=== PATIENT | male | born 1970 | race Caucasian/White ===

== ENCOUNTER 2017-01-21 18:03 | Emergency (ER) | payer OTHER ==
[~2017-01-21] VITALS: Ht 170.2 cm; Wt 63.5 kg
--- NOTE | ~2017-01-21 | EKG ---
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 : 1970 Requested By: Oralia Smith Order Number: [id number] MD: Chuy Garcia Measurements Intervals [place] Rate: 108 P: 88 [place]: 145 QRS: 75 QRSD: 95 T: 37 QT: 326 QTc: 437 Interpretive Statements Sinus tachycardia ST elev, probable normal early repol pattern Compared to ECG 08/18/2015 04:14:23 ST (T wave) deviation now present Sinus rhythm no longer present Atrial abnormality no longer present T-wave abnormality no longer present Electronically Signed On 01-23-2017 22:12:21 CDT by Chuy Garcia [email or web address] <ELECTRONICALLY SIGNED> By: Chuy Garcia MD 01/23/17 2212 180 180 Chuy Garcia MD /EPI
[~2017-01-21 18:03] MED LIST: ATIVAN1 MG PO; CHLORDIAZEPOXID25 M1 PO; ERYTHROMYCIN E3.5 G1 OPHTHALMIC; LOPRESSOR100 M1 PO; METHADONE HCL40 MG PO; NOHOMEMEDICATIONS; PHENERGAN 25 MG25 M1 PO; PROPRANOLOL 1010 MG PO; VICODIN 5-5001 EACH PO; XANAX 0.5 MG0.5 M1 PO; XANAX 1 MG TABLE1 MG PO
[2017-01-21 18:15] LABS: ABSOLUTE NEUTROPHILS 4.7 thou/uL (1.4-8.2); EOSINOPHILS 0.2 % (0.0-3.0); HEMATOCRIT 42.7 % (42.0-52.0); HEMOGLOBIN 14.5 gm/dL (14.0-18.0); LYMPHOCYTES 22.8 % (24.0-44.0); MANUAL DIFF NO; MCH 34.1 pg (26.0-34.0); MCV 100.5 fL (80.0-100.0); MONOCYTES 7.1 % (1.0-8.0); PLATELET COUNT 209 thou/uL (150-400); POLYS 68.9 % (36.0-66.0); RBC 4.25 mil/uL (4.50-6.00); RDW 13.6 % (10.5-14.5); WBC 6.9 thou/uL (4.0-11.0)
[2017-01-21 18:22] LABS: ANION GAP 16 mmol/L (7-16); BUN 21 mg/dL (7-18); CALCIUM 8.8 mg/dL (8.5-10.1); CHLORIDE 95 mmol/L (98-107); CO2 25 mmol/L (21-32); CREATININE 0.8 mg/dL (0.7-1.3); GLUCOSE 75 mg/dL (74-106); SODIUM 136 mmol/L (136-145)
[2017-01-21 18:31] LABS: TROPONIN-I < 0.04 ng/mL (<0.04-0.07)
[2017-01-21] MEDS ORDERED: CHLORDIAZEPOXID10 MG PO (18:58)
[2017-01-21 19:31] VITALS: BP 144/48
== END 2017-01-21 19:42 | disposition home or self-care (01) ==
LOC: ER 18:03
PROVIDERS: Emergency Medicine
DX: F10.239 Alcohol dependence with withdrawal, unspecified (principal); F41.9 Anxiety disorder, unspecified; F17.210 Nicotine dependence, cigarettes, uncomplicated; Z88.5 Allergy status to narcotic agent; Z91.013 Allergy to seafood

== ENCOUNTER 2017-01-23 14:53 | Emergency (ER) | payer OTHER ==
[~2017-01-23] VITALS: Ht 167.6 cm; Wt 61.2 kg
[~2017-01-23 14:53] MED LIST changes: +CHLORDIAZEPOXID10 MG PO
[2017-01-23 15:16] LABS: ABSOLUTE NEUTROPHILS 6.3 thou/uL (1.4-8.2); BASOPHILS 0.4 % (0.0-2.0); EOSINOPHILS 0.8 % (0.0-3.0); HEMATOCRIT 41.9 % (42.0-52.0); HEMOGLOBIN 14.5 gm/dL (14.0-18.0); LYMPHOCYTES 12.7 % (24.0-44.0); MCH 34.6 pg (26.0-34.0); MCHC 34.7 g/dL (28.0-37.0); MCV 99.5 fL (80.0-100.0); MONOCYTES 8.7 % (1.0-8.0); PLATELET COUNT 159 thou/uL (150-400); POLYS 77.4 % (36.0-66.0); RDW 13.2 % (10.5-14.5); WBC 8.1 thou/uL (4.0-11.0)
[2017-01-23 15:19] LABS: MANUAL DIFF NO
[2017-01-23 15:24] LABS: CALCIUM 9.6 mg/dL (8.5-10.1); CREATININE 0.7 mg/dL (0.7-1.3); POTASSIUM 3.1 mmol/L (3.5-5.1)
[2017-01-23 15:30] LABS: ALBUMIN 4.5 g/dL (3.4-5.0); DIRECT BILIRUBIN 0.3 mg/dL (<0.1-0.3); TOTAL BILIRUBIN 1.2 mg/dL (<0.1-1.0); TOTAL PROTEIN 8.1 g/dL (6.4-8.2)
[2017-01-23 18:22] VITALS: BP 132/77
[2017-01-23] MEDS ORDERED: ATIVAN1 MG PO (18:24)
== END 2017-01-23 17:43 | disposition home or self-care (01) ==
LOC: ER 14:53
PROVIDERS: Emergency Medicine
DX: F10.239 Alcohol dependence with withdrawal, unspecified (principal); F41.9 Anxiety disorder, unspecified; F17.210 Nicotine dependence, cigarettes, uncomplicated; Z88.5 Allergy status to narcotic agent; Z91.013 Allergy to seafood

== ENCOUNTER 2017-03-01 19:34 | Inpatient (IN) | payer OTHER ==
[~2017-03-01] VITALS: Ht 170.2 cm; Wt 60.3 kg
--- NOTE | ~2017-03-01 | EKG ---
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: Tamar LUCIANO : 1970 Requested By: Jamaal Aiken Order Number: [id number] MD: Rachid Vázquez Measurements Intervals [place] Rate: 104 P: 92 [place]: 143 QRS: 80 QRSD: 90 T: 48 QT: 327 QTc: 430 Interpretive Statements Sinus tachycardia Otherwise no significant abnormality Compared to ECG 01/21/2017 18:04:33 No significant change was found Electronically Signed On 03-02-2017 8:10:30 CDT by Rachid Vázquez [email or web address] <ELECTRONICALLY SIGNED> By: Rachid Vázquez MD, [facility] 03/02/17809 20 20 Rachid Vázquez MD, [facility] /EPI
[2017-03-01 19:35] VITALS: BP 133/85
[2017-03-01 20:22] LABS: HEMATOCRIT 48.2 % (42.0-52.0); HEMOGLOBIN 16.2 gm/dL (14.0-18.0); MCHC 33.6 g/dL (28.0-37.0); MCV 98.2 fL (80.0-100.0); RBC 4.91 mil/uL (4.50-6.00); RDW 13.6 % (10.5-14.5); WBC 18.3 thou/uL (4.0-11.0)
[2017-03-01 20:29] LABS: CALCIUM 8.4 mg/dL (8.5-10.1)
[2017-03-02] VITALS (22 sets, daily range): BP systolic 106–151; BP diastolic 62–94
[2017-03-02 01:50] LABS: MAGNESIUM 2.1 mg/dL (1.8-2.4); PHOSPHORUS 1.6 mg/dL (2.5-4.9)
[2017-03-02 02:02] LABS: ALBUMIN 3.9 g/dL (3.4-5.0); DIRECT BILIRUBIN 0.1 mg/dL (<0.1-0.3); TOTAL BILIRUBIN 0.8 mg/dL (<0.1-1.0)
[2017-03-02 02:08] LABS: URINE BILIRUBIN NEGATIVE (Negative); URINE BLOOD TRACE (Negative); URINE COLOR YELLOW; URINE GLUCOSE-RANDOM* 1+ (Negative); URINE KETONES 2+ (Negative); URINE NITRITE NEGATIVE (Negative); URINE PROTEIN (DIPSTICK) TRACE (Negative); URINE SPECIFIC GRAVITY 1.025 (1.003-1.035); URINE UROBILINOGEN 0.2 E.U./dl (0.2-1.0)
[2017-03-02 02:15] LABS: FOLIC ACID 29.9 ng/mL (8.6-58.9)
[2017-03-02 02:16] LABS: AMP/METHAMP Negative (Negative); BARBITURATES Negative (Negative); BENZODIAZEPINES POSITIVE (Negative); COCAINE Negative (Negative); METHADONE Negative (Negative); OPIATES Negative (Negative); PCP Negative (Negative); THC Negative (Negative)
[2017-03-02 11:09] LABS: FREE T4 1.25 ng/dL (0.82-1.77)
[2017-03-03] VITALS (17 sets, daily range): BP systolic 96–156; BP diastolic 53–92
[2017-03-03 06:02] LABS: HEMATOCRIT 39.4 % (42.0-52.0); MCH 33.5 pg (26.0-34.0); MCHC 33.7 g/dL (28.0-37.0); MCV 99.4 fL (80.0-100.0); RBC 3.97 mil/uL (4.50-6.00); RDW 13.7 % (10.5-14.5); WBC 7.1 thou/uL (4.0-11.0)
[2017-03-03 06:12] LABS: CALCIUM 8.6 mg/dL (8.5-10.1); CREATININE 0.6 mg/dL (0.7-1.3); POTASSIUM 3.7 mmol/L (3.5-5.1)
[2017-03-03 06:16] LABS: HEMOGLOBIN 13.3 gm/dL (14.0-18.0)
[2017-03-04 00:02] VITALS: BP 125/73
[2017-03-04 01:00] VITALS: BP 139/84
[2017-03-04 02:00] VITALS: BP 126/56
[2017-03-04 04:19] VITALS: BP 120/83
[2017-03-04 15:33] VITALS: BP 163/142
[2017-03-04 19:16] VITALS: BP 148/98
[2017-03-05 05:25] VITALS: BP 136/89
[2017-03-05 07:43] VITALS: BP 117/67
[2017-03-05 11:49] VITALS: BP 140/88
[2017-03-05] MEDS ORDERED: MIRTAZAPINE7.5 MG PO (12:23)
[2017-03-05 12:32] VITALS: BP 107/84
[2017-03-05 13:15] VITALS: BP 107/84
== END 2017-03-05 14:26 | disposition home or self-care (01) | DRG 897 ==
LOC: ER 19:34 → EROBS 21:17 → ICU 03-02 00:34 → 4W 03-04 14:52
PROVIDERS: Emergency Medicine; Nurse Practitioner Acute Care
DX: F10.230 Alcohol dependence with withdrawal, uncomplicated (principal); F41.9 Anxiety disorder, unspecified; F17.210 Nicotine dependence, cigarettes, uncomplicated; D72.829 Elevated white blood cell count, unspecified; F32.9 Major depressive disorder, single episode, unspecified; Z88.5 Allergy status to narcotic agent; Z91.013 Allergy to seafood; Z82.49 Family history of ischemic heart disease and other diseases of the circulatory system; Z80.8 Family history of malignant neoplasm of other organs or systems
CPT/HCPCS: 10045; 10078

== ENCOUNTER 2017-04-07 10:35 | Emergency (ER) | payer OTHER ==
[~2017-04-07] VITALS: Ht 170.2 cm; Wt 65.8 kg
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
[~2017-04-07 10:35] MED LIST changes: +MIRTAZAPINE7.5 MG PO
[2017-04-07 11:13] LABS: ABG SAMPLE TYPE ARTERIAL; BE(vivo) -2.2 mmol/L (-2 to +3); HCO3 22.2 mmol/L (22.0-26.0); LACTATE 3.42 mmol/L (0.5-2.0); O2(CT) 21.8 mL/dL (15.0-23.0); O2Hb 90.6 % (92.0-98.0); PCO2 37.5 mmHg (35.0-45.0); PO2 71.4 mmHg (80.0-100.0); STICK SITE R.BRACHIAL; pH 7.391 (7.360-7.450); sO2 94.3 % (92.0-98.0); tCO2 23.4 mmol/L (24.0-30.0)
[2017-04-07 13:51] LABS: CALCIUM 8.3 mg/dL (8.5-10.1); CREATININE 0.8 mg/dL (0.7-1.3); POTASSIUM 4.1 mmol/L (3.5-5.1)
[2017-04-07 13:56] LABS: ALBUMIN 3.7 g/dL (3.4-5.0); TOTAL BILIRUBIN 0.5 mg/dL (<0.1-1.0); TOTAL PROTEIN 6.3 g/dL (6.4-8.2)
[2017-04-07 14:18] LABS: ABSOLUTE NEUTROPHILS 7.4 thou/uL (1.4-8.2); BASOPHILS 0.7 % (0.0-2.0); EOSINOPHILS 0.6 % (0.0-3.0); HEMATOCRIT 46.6 % (42.0-52.0); HEMOGLOBIN 15.5 gm/dL (14.0-18.0); LYMPHOCYTES 12.6 % (24.0-44.0); MCHC 33.3 g/dL (28.0-37.0); MCV 98.9 fL (80.0-100.0); MONOCYTES 6.2 % (1.0-8.0); PLATELET COUNT 238 thou/uL (150-400); POLYS 79.9 % (36.0-66.0); RBC 4.71 mil/uL (4.50-6.00); RDW 13.7 % (10.5-14.5); WBC 9.2 thou/uL (4.0-11.0)
[2017-04-07 14:19] LABS: MANUAL DIFF NO
[2017-04-08] MEDS ORDERED: XANAX1 MG PO (13:02)
== END 2017-04-07 14:45 | disposition left against medical advice (07) ==
LOC: ER 10:35
PROVIDERS: Nurse Practitioner
DX: F10.10 Alcohol abuse, uncomplicated (principal); E87.2 Acidosis; F41.9 Anxiety disorder, unspecified; Z88.5 Allergy status to narcotic agent; Z91.013 Allergy to seafood

== ENCOUNTER 2017-04-08 09:36 | Inpatient (IN) | payer OTHER ==
[2017-04-08] VITALS (16 sets, daily range): BP systolic 102–130; BP diastolic 57–84
[~2017-04-08] VITALS: Ht 170.2 cm; Wt 59.0 kg
--- NOTE | ~2017-04-08 | EKG ---
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: : 1970 Requested By: Jamaal Aiken Order Number: [id number] MD: Chuy Garcia Measurements Intervals [place] Rate: 65 P: 90 [place]: 160 QRS: 72 QRSD: 112 T: 42 QT: 413 QTc: 430 Interpretive Statements Sinus rhythm Borderline intraventricular conduction delay ST elev, probable normal early repol pattern Compared to ECG 03/01/2017 20:21:34 ST (T wave) deviation now present Sinus tachycardia no longer present Electronically Signed On 04-08-2017 15:31:41 CDT by Chuy Garcia [email or web address] <ELECTRONICALLY SIGNED> By: Chuy Garcia MD 04/08/17 1531 0958 0958 Chuy Garcia MD /EPI
[2017-04-08 10:03] LABS: ABG SAMPLE TYPE ARTERIAL; BE(vivo) -1.4 mmol/L (-2 to +3); HCO3 23.3 mmol/L (22.0-26.0); LACTATE 2.48 mmol/L (0.5-2.0); O2Hb 84.9 % (92.0-98.0); PCO2 39.3 mmHg (35.0-45.0); PO2 64.9 mmHg (80.0-100.0); STICK SITE R.RADIAL; sO2 92.6 % (92.0-98.0); tCO2 24.5 mmol/L (24.0-30.0)
[2017-04-08 11:16] LABS: HEMOGLOBIN 15.9 gm/dL (14.0-18.0); MCH 32.9 pg (26.0-34.0); MCHC 33.2 g/dL (28.0-37.0); MCV 99.1 fL (80.0-100.0); RBC 4.84 mil/uL (4.50-6.00); RDW 13.5 % (10.5-14.5); WBC 7.1 thou/uL (4.0-11.0)
[2017-04-08 11:23] LABS: CALCIUM 8.8 mg/dL (8.5-10.1); CREATININE 0.8 mg/dL (0.7-1.3); MAGNESIUM 2.1 mg/dL (1.8-2.4); POTASSIUM 3.9 mmol/L (3.5-5.1)
[2017-04-08] MEDS ORDERED: XANAX1 MG PO (13:02)
== END 2017-04-08 20:00 | disposition home or self-care (01) | DRG 917 ==
LOC: ER 09:36 → EROBS 10:54 → ICU 14:45
PROVIDERS: Emergency Medicine
DX: T58.91XA Toxic effect of carbon monoxide from unspecified source, accidental (unintentional), initial encounter (principal); J96.01 Acute respiratory failure with hypoxia; S27.399A Other injuries of lung, unspecified, initial encounter; F17.210 Nicotine dependence, cigarettes, uncomplicated; J70.5 Respiratory conditions due to smoke inhalation; F41.9 Anxiety disorder, unspecified; Z88.6 Allergy status to analgesic agent; Z91.013 Allergy to seafood; Z82.49 Family history of ischemic heart disease and other diseases of the circulatory system; Z80.8 Family history of malignant neoplasm of other organs or systems; Z23 Encounter for immunization
CPT/HCPCS: 10078

== ENCOUNTER 2017-04-13 05:33 | Emergency (ER) | payer OTHER ==
[~2017-04-13] VITALS: Ht 170.2 cm; Wt 63.5 kg
--- NOTE | ~2017-04-13 | EKG ---
[address] [place] [address] ELECTROCARDIOGRAM REPORT Name: CHELLY QURESHI Room #: [facility] [id number] Admission: 04/13/17 Attend Phys: Discharge: 04/13/17 Date of : 68 Report #: [id number] THIS REPORT FOR: //name// 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: : 1970 Requested By: Oralia Smith Order Number: [id number] MD: Chuy Garcia Measurements Intervals [place] Rate: 111 P: 90 [place]: 138 QRS: 86 QRSD: 93 T: 33 QT: 321 QTc: 436 Interpretive Statements Sinus tachycardia DELMY, consider biatrial enlargement Compared to ECG 04/08/2017 09:58:39 Sinus rhythm no longer present ST (T wave) deviation no longer present Electronically Signed On 04-13-2017 7:31:50 CDT by Chuy Garcia [email or web address] <ELECTRONICALLY SIGNED> By: Chuy Garcia MD 04/13/17 0731 7 Chuy Garcia MD /MARY KATE
[~2017-04-13 05:33] MED LIST changes: +XANAX1 MG PO
[2017-04-13] MEDS ORDERED: NORCO 5-325 TA1 EACH PO (06:41)
== END 2017-04-13 07:11 | disposition home or self-care (01) ==
LOC: ER 05:33
DX: S39.012A Strain of muscle, fascia and tendon of lower back, initial encounter (principal); F41.9 Anxiety disorder, unspecified; F17.210 Nicotine dependence, cigarettes, uncomplicated; F10.99 Alcohol use, unspecified with unspecified alcohol-induced disorder; Z91.013 Allergy to seafood; Z88.5 Allergy status to narcotic agent; W18.39XA Other fall on same level, initial encounter; Y93.89 Activity, other specified; Y92.89 Other specified places as the place of occurrence of the external cause; Y99.8 Other external cause status

== ENCOUNTER 2017-08-23 13:40 | Emergency (ER) | payer OTHER ==
[~2017-08-23] VITALS: Ht 170.2 cm; Wt 63.5 kg
[~2017-08-23 13:40] MED LIST changes: +NORCO 5-325 TA1 EACH PO
[2017-08-23 14:10] LABS: ABSOLUTE NEUTROPHILS 6.4 thou/uL (1.4-8.2); EOSINOPHILS 2.2 % (0.0-3.0); HEMATOCRIT 44.1 % (42.0-52.0); HEMOGLOBIN 15.1 gm/dL (14.0-18.0); LYMPHOCYTES 25.2 % (24.0-44.0); MCH 33.2 pg (26.0-34.0); MCHC 34.2 g/dL (28.0-37.0); MCV 96.9 fL (80.0-100.0); PLATELET COUNT 309 thou/uL (150-400); POLYS 66.6 % (36.0-66.0); RBC 4.55 mil/uL (4.50-6.00); RDW 13.2 % (10.5-14.5); WBC 9.6 thou/uL (4.0-11.0)
[2017-08-23 14:21] LABS: POTASSIUM 3.8 mmol/L (3.5-5.1)
[2017-08-23 14:26] LABS: TOTAL BILIRUBIN 0.7 mg/dL (<0.1-1.0); TOTAL PROTEIN 7.5 g/dL (6.4-8.2)
[2017-08-23 14:55] VITALS: BP 128/85
[2017-08-23 15:39] LABS: AMP/METHAMP Negative (Negative); BARBITURATES Negative (Negative); BENZODIAZEPINES POSITIVE (Negative); COCAINE Negative (Negative); METHADONE Negative (Negative); OPIATES POSITIVE (Negative); PCP Negative (Negative)
== END 2017-08-23 15:25 | disposition left against medical advice (07) ==
LOC: ER 13:40
PROVIDERS: Nurse Practitioner
DX: R51 Headache (principal); F41.9 Anxiety disorder, unspecified; F17.210 Nicotine dependence, cigarettes, uncomplicated; Z88.5 Allergy status to narcotic agent; Z91.013 Allergy to seafood

== ENCOUNTER 2017-09-16 18:06 | Inpatient (IN) | payer OTHER ==
[~2017-09-16] VITALS: Ht 170.2 cm; Wt 65.8 kg
--- NOTE | ~2017-09-16 | EKG ---
[address] [place] [address] ELECTROCARDIOGRAM REPORT Name: CHELLY QURESHI Room #: [facility] IN M.R.#: [id number] Admission: 09/16/17 Attend Phys: Cornell Zazueta MD Discharge: 09/17/17 Date of : 68 Report #: [id number] THIS REPORT FOR: //name// [facility] ED Test Date: 2017-09-16 Test Time: 18:54:10 Pat Name: CHELLY QURESHI Department: Room: [facility] Gender: M Postpartum Rn: as : 1970 Requested By: Marina Velasquez Order Number: [id number] MD: Rachid Vázquez Measurements Intervals [place] Rate: 90 P: 85 [place]: 157 QRS: 71 QRSD: 91 T: 60 QT: 385 QTc: 471 Interpretive Statements Sinus rhythm Normal tracing Compared to ECG 05/09/2017 15:27:21 ST (T wave) deviation no longer present Electronically Signed On 09-18-2017 12:50:41 CDT by Rachid Vázquez [email or web address] <ELECTRONICALLY SIGNED> By: Rachid Vázquez MD, [facility] 09/18/17 1250 1854 185 Rachid Vázquez MD, [facility] /EPI
[2017-09-16 18:09] VITALS: BP 143/88
[2017-09-16 18:28] LABS: ABSOLUTE NEUTROPHILS 5.7 thou/uL (1.4-8.2); EOSINOPHILS 0.1 % (0.0-3.0); HEMATOCRIT 44.4 % (42.0-52.0); LYMPHOCYTES 11.6 % (24.0-44.0); MCH 33.3 pg (26.0-34.0); MCHC 33.7 g/dL (28.0-37.0); MCV 98.9 fL (80.0-100.0); MONOCYTES 1.6 % (1.0-8.0); PLATELET COUNT 428 thou/uL (150-400); POLYS 85.7 % (36.0-66.0); RBC 4.49 mil/uL (4.50-6.00); RDW 14.5 % (10.5-14.5); WBC 6.6 thou/uL (4.0-11.0)
[2017-09-16 18:36] LABS: CALCIUM 8.7 mg/dL (8.5-10.1); CREATININE 0.8 mg/dL (0.7-1.3); POTASSIUM 3.8 mmol/L (3.5-5.1)
[2017-09-16 18:42] LABS: TOTAL BILIRUBIN 0.6 mg/dL (<0.1-1.0); TOTAL PROTEIN 7.4 g/dL (6.4-8.2)
[2017-09-16 18:43] LABS: URINE BILIRUBIN NEGATIVE (Negative); URINE BLOOD 1+ (Negative); URINE CLARITY CLEAR; URINE COLOR YELLOW; URINE GLUCOSE-RANDOM* NEGATIVE (Negative); URINE KETONES 3+ (Negative); URINE LEUKOCYTES NEGATIVE (Negative); URINE NITRITE NEGATIVE (Negative); URINE PROTEIN (DIPSTICK) TRACE (Negative); URINE SPECIFIC GRAVITY >= 1.030 (1.005-1.035); URINE UROBILINOGEN 0.2 E.U./dl (0.2-1.0)
[2017-09-16 18:50] LABS: URINE REDUCING SUBSTANCE NEGATIVE
[2017-09-16 18:58] LABS: CASTS None Seen /LPF (None Seen); SQUAMOUS None Seen /LPF (0-3); URINE RBC 0-2 Rare /HPF (0-2); URINE WBC 0-5 Rare /HPF (0-5)
[2017-09-16 18:59] LABS: BACTERIA None Seen /HPF (None Seen); CRYSTALS None Seen /LPF (None Seen)
[2017-09-16 19:32] LABS: AMP/METHAMP Negative (Negative); BARBITURATES Negative (Negative); BENZODIAZEPINES Negative (Negative); COCAINE Negative (Negative); METHADONE Negative (Negative); OPIATES POSITIVE (Negative); PCP Negative (Negative)
[2017-09-16 20:10] VITALS: BP 159/82
[2017-09-17 00:46] VITALS: BP 131/74
[2017-09-17 04:15] VITALS: BP 112/82
[2017-09-17 04:28] LABS: CALCIUM 8.1 mg/dL (8.5-10.1); CREATININE 0.7 mg/dL (0.7-1.3); MAGNESIUM 1.7 mg/dL (1.8-2.4); POTASSIUM 3.8 mmol/L (3.5-5.1)
[2017-09-17 07:25] VITALS: BP 160/100
[2017-09-17] MEDS ORDERED: CHLORDIAZEPOXID25 M1 PO (08:31)
[2017-09-17] MEDS ORDERED: VITAMIN B-1100 M2 PO (08:31)
[2017-09-17] MEDS ORDERED: PRENATAL PO (08:32)
[2017-09-17] MEDS ORDERED: NORVASC10 MG PO (08:33)
[2017-09-17 10:55] VITALS: BP 160/100
== END 2017-09-17 12:00 | disposition home or self-care (01) | DRG 897 ==
LOC: ER 18:06 → EROBS 19:30 → 2N 20:18
PROVIDERS: Nurse Practitioner Acute Care; Nurse Practitioner Family
DX: F10.239 Alcohol dependence with withdrawal, unspecified (principal); F41.9 Anxiety disorder, unspecified; I10 Essential (primary) hypertension; R74.0 Nonspecific elevation of levels of transaminase and lactic acid dehydrogenase [LDH]; F17.210 Nicotine dependence, cigarettes, uncomplicated; Z71.6 Tobacco abuse counseling; Z87.828 Personal history of other (healed) physical injury and trauma; Z88.5 Allergy status to narcotic agent; Z91.013 Allergy to seafood
CPT/HCPCS: 10081

== ENCOUNTER 2017-09-27 23:45 | Emergency (ER) | payer OTHER ==
[~2017-09-27] VITALS: Ht 170.2 cm; Wt 63.5 kg
--- NOTE | ~2017-09-27 | EKG ---
[address] [address] [facility] [place] [address] ELECTROCARDIOGRAM REPORT Name: CHELLY QURESHI [id number] Admission: 09/27/17 Attend Phys: Discharge: 09/28/17 Date of : 68 Report #: [id number] THIS REPORT FOR: //name// 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
[~2017-09-27 23:45] MED LIST changes: +NORVASC10 MG PO; +PRENATAL PO; +VITAMIN B-1100 M2 PO
[2017-09-28 00:17] LABS: ABSOLUTE NEUTROPHILS 3.9 thou/uL (1.4-8.2); BASOPHILS 0.3 % (0.0-2.0); EOSINOPHILS 0.9 % (0.0-3.0); HEMOGLOBIN 15.7 gm/dL (14.0-18.0); LYMPHOCYTES 35.1 % (24.0-44.0); MCHC 34.1 g/dL (28.0-37.0); MCV 99.7 fL (80.0-100.0); MONOCYTES 7.1 % (1.0-8.0); PLATELET COUNT 197 thou/uL (150-400); POLYS 56.6 % (36.0-66.0); RBC 4.61 mil/uL (4.50-6.00); RDW 15.4 % (10.5-14.5); WBC 6.8 thou/uL (4.0-11.0)
[2017-09-28 00:27] LABS: ANION GAP 14 mmol/L (7-16); BUN 22 mg/dL (7-18); CALCIUM 8.5 mg/dL (8.5-10.1); CHLORIDE 105 mmol/L (98-107); CO2 27 mmol/L (21-32); CREATININE 0.8 mg/dL (0.7-1.3); GLUCOSE 95 mg/dL (74-106); POTASSIUM 3.5 mmol/L (3.5-5.1); SODIUM 146 mmol/L (136-145)
[2017-09-28 00:35] LABS: ALBUMIN 4.6 g/dL (3.4-5.0); LIPASE 299 U/L (73-393); SALICYLATE 3.8 mg/dL (2.8-20.0); SGOT 84 U/L (15-37); SGPT 55 U/L (30-65); TOTAL BILIRUBIN 0.6 mg/dL (<0.1-1.0); TOTAL PROTEIN 7.8 g/dL (6.4-8.2); TROPONIN-I < 0.04 ng/mL (<0.06)
[2017-09-28 01:00] LABS: URINE BILIRUBIN NEGATIVE (Negative); URINE BLOOD 1+ (Negative); URINE CLARITY CLEAR; URINE COLOR YELLOW; URINE GLUCOSE-RANDOM* NEGATIVE (Negative); URINE KETONES TRACE (Negative); URINE LEUKOCYTES-REFLEX NEGATIVE (Negative); URINE NITRITE-REFLEX NEGATIVE (Negative); URINE PROTEIN (DIPSTICK) 1+ (Negative); URINE SPECIFIC GRAVITY 1.025 (1.005-1.035); URINE UROBILINOGEN 0.2 E.U./dl (0.2-1.0)
[2017-09-28 01:09] LABS: AMP/METHAMP Negative (Negative); BARBITURATES Negative (Negative); BENZODIAZEPINES POSITIVE (Negative); COCAINE Negative (Negative); METHADONE Negative (Negative); OPIATES Negative (Negative); PCP Negative (Negative)
[2017-09-28 01:12] LABS: BACTERIA-REFLEX None Seen /HPF (None Seen); CASTS None Seen /LPF (None Seen); CRYSTALS None Seen /LPF (None Seen); MUCUS None Seen strn/LPF (None Seen); SQUAMOUS None Seen /LPF (0-3); URINE RBC 0-2 Rare /HPF (0-2); URINE WBC-REFLEX None Seen /HPF (0-5)
[2017-09-28] MEDS ORDERED: ZOFRAN ODT8 MG PO (01:41)
== END 2017-09-28 01:48 | disposition left against medical advice (07) ==
LOC: ER 23:45
PROVIDERS: Emergency Medicine
DX: F10.129 Alcohol abuse with intoxication, unspecified (principal); F41.9 Anxiety disorder, unspecified; F11.20 Opioid dependence, uncomplicated; Z88.5 Allergy status to narcotic agent; F17.210 Nicotine dependence, cigarettes, uncomplicated

== ENCOUNTER 2017-09-28 23:36 | Emergency (ER) | payer OTHER ==
[~2017-09-28] VITALS: Ht 170.2 cm; Wt 63.5 kg
[~2017-09-28 23:36] MED LIST changes: +ZOFRAN ODT8 MG PO
[2017-09-29 00:44] LABS: AMP/METHAMP Negative (Negative); BARBITURATES Negative (Negative); BENZODIAZEPINES POSITIVE (Negative); COCAINE Negative (Negative); METHADONE Negative (Negative); OPIATES Negative (Negative); PCP Negative (Negative)
[2017-09-29 01:08] LABS: HEMATOCRIT 43.6 % (42.0-52.0); HEMOGLOBIN 14.7 gm/dL (14.0-18.0); MCH 33.5 pg (26.0-34.0); MCHC 33.7 g/dL (28.0-37.0); MCV 99.3 fL (80.0-100.0); RBC 4.39 mil/uL (4.50-6.00); RDW 15.3 % (10.5-14.5)
[2017-09-29 01:15] LABS: CALCIUM 8.1 mg/dL (8.5-10.1); CREATININE 0.7 mg/dL (0.7-1.3); POTASSIUM 3.6 mmol/L (3.5-5.1)
[2017-09-29 01:21] LABS: ALBUMIN 4.2 g/dL (3.4-5.0); TOTAL BILIRUBIN 0.4 mg/dL (<0.1-1.0); TOTAL PROTEIN 7.4 g/dL (6.4-8.2)
== END 2017-09-29 02:11 | disposition left against medical advice (07) ==
LOC: ER 23:36
PROVIDERS: Emergency Medicine
DX: F10.129 Alcohol abuse with intoxication, unspecified (principal); F17.210 Nicotine dependence, cigarettes, uncomplicated; Z88.5 Allergy status to narcotic agent; Z91.013 Allergy to seafood

== ENCOUNTER 2017-11-08 14:01 | Emergency (ER) | payer OTHER ==
[~2017-11-08] VITALS: Ht 167.6 cm; Wt 65.8 kg
--- NOTE | ~2017-11-08 | EKG ---
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: KKODJOVI : 1970 Requested By: Nataly Siddiqui Order Number: [id number] MD: Chuy Garcia Measurements Intervals [place] Rate: 111 P: 86 [place]: 142 QRS: 77 QRSD: 92 T: 55 QT: 325 QTc: 442 Interpretive Statements Sinus tachycardia Right atrial enlargement Compared to ECG 09/28/2017 00:12:32 Atrial abnormality now present Sinus rhythm no longer present Electronically Signed On 11-08-2017 15:18:57 CDT by Chuy Garcia [email or web address] <ELECTRONICALLY SIGNED> By: Chuy Garcia MD 11/08/17 1518 1405 140 Chuy Garcia MD /MARY KATE
[2017-11-08 14:48] LABS: ABSOLUTE NEUTROPHILS 7.8 thou/uL (1.4-8.2); BASOPHILS 1.3 % (0.0-2.0); EOSINOPHILS 0.1 % (0.0-3.0); HEMATOCRIT 45.6 % (42.0-52.0); HEMOGLOBIN 15.7 gm/dL (14.0-18.0); LYMPHOCYTES 22.7 % (24.0-44.0); MCH 33.7 pg (26.0-34.0); MCHC 34.4 g/dL (28.0-37.0); MCV 98.1 fL (80.0-100.0); MONOCYTES 6.2 % (1.0-8.0); PLATELET COUNT 366 thou/uL (150-400); POLYS 69.7 % (36.0-66.0); RBC 4.65 mil/uL (4.50-6.00); RDW 14.3 % (10.5-14.5); WBC 11.3 thou/uL (4.0-11.0)
[2017-11-08 15:00] LABS: ANION GAP 17 mmol/L (7-16); BUN 23 mg/dL (7-18); CALCIUM 8.6 mg/dL (8.5-10.1); CHLORIDE 101 mmol/L (98-107); CO2 21 mmol/L (21-32); CREATININE 0.9 mg/dL (0.7-1.3); GLUCOSE 101 mg/dL (74-106); POTASSIUM 3.9 mmol/L (3.5-5.1); SODIUM 139 mmol/L (136-145)
[2017-11-08 15:08] LABS: ALBUMIN 4.4 g/dL (3.4-5.0); DIRECT BILIRUBIN 0.2 mg/dL (<0.1-0.3); LIPASE 138 U/L (73-393); SGOT 31 U/L (15-37); SGPT 27 U/L (30-65); TOTAL BILIRUBIN 0.9 mg/dL (<0.1-1.0); TOTAL PROTEIN 7.9 g/dL (6.4-8.2); TROPONIN-I < 0.04 ng/mL (<0.06)
[2017-11-08] MEDS ORDERED: ATIVAN1 MG PO (18:18)
== END 2017-11-08 18:29 | disposition home or self-care (01) ==
LOC: ER 14:01
PROVIDERS: Emergency Medicine
DX: F10.20 Alcohol dependence, uncomplicated (principal); F17.210 Nicotine dependence, cigarettes, uncomplicated; Z88.5 Allergy status to narcotic agent; Z91.013 Allergy to seafood

== ENCOUNTER 2017-11-09 05:08 | Inpatient (IN) | payer OTHER ==
[~2017-11-09] VITALS: Ht 167.6 cm; Wt 56.4 kg
--- NOTE | ~2017-11-09 | EKG ---
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 11/09/17 0832 D: [address]5525 5 Rachid Vázquez MD, FACC /EPI
[2017-11-09 05:09] VITALS: BP 154/80
[2017-11-09 05:28] LABS: ABSOLUTE NEUTROPHILS 11.5 thou/uL (1.4-8.2); BASOPHILS 1.3 % (0.0-2.0); EOSINOPHILS 0.3 % (0.0-3.0); HEMATOCRIT 43.4 % (42.0-52.0); HEMOGLOBIN 15.1 gm/dL (14.0-18.0); LYMPHOCYTES 14.2 % (24.0-44.0); MCH 33.9 pg (26.0-34.0); MCHC 34.7 g/dL (28.0-37.0); MCV 97.7 fL (80.0-100.0); PLATELET COUNT 375 thou/uL (150-400); POLYS 76.2 % (36.0-66.0); RBC 4.44 mil/uL (4.50-6.00); RDW 14.2 % (10.5-14.5); WBC 15.1 thou/uL (4.0-11.0)
[2017-11-09 05:30] LABS: URINE BILIRUBIN NEGATIVE (Negative); URINE BLOOD 1+ (Negative); URINE CLARITY CLEAR; URINE COLOR YELLOW; URINE GLUCOSE-RANDOM* NEGATIVE (Negative); URINE KETONES 1+ (Negative); URINE LEUKOCYTES-REFLEX NEGATIVE (Negative); URINE NITRITE-REFLEX NEGATIVE (Negative); URINE PROTEIN (DIPSTICK) 1+ (Negative); URINE SPECIFIC GRAVITY 1.025 (1.005-1.035); URINE UROBILINOGEN 0.2 E.U./dl (0.2-1.0)
[2017-11-09 05:37] LABS: SQUAMOUS 0-3 Few /LPF (0-3)
[2017-11-09 05:38] LABS: BACTERIA-REFLEX 1-9 Few /HPF (None Seen); CASTS None Seen /LPF (None Seen); CRYSTALS None Seen /LPF (None Seen); URINE RBC None Seen /HPF (0-2); URINE WBC-REFLEX None Seen /HPF (0-5)
[2017-11-09 05:40] LABS: AMP/METHAMP Negative (Negative); BARBITURATES POSITIVE (Negative); BENZODIAZEPINES Negative (Negative); COCAINE Negative (Negative); METHADONE Negative (Negative); OPIATES POSITIVE (Negative); PCP Negative (Negative)
[2017-11-09 05:41] LABS: ANION GAP 21 mmol/L (7-16); BUN 22 mg/dL (7-18); CALCIUM 9.5 mg/dL (8.5-10.1); CHLORIDE 91 mmol/L (98-107); CO2 23 mmol/L (21-32); CREATININE 0.9 mg/dL (0.7-1.3); GLUCOSE 135 mg/dL (74-106); POTASSIUM 3.2 mmol/L (3.5-5.1); SODIUM 135 mmol/L (136-145)
[2017-11-09 05:50] LABS: ALBUMIN 4.7 g/dL (3.4-5.0); MAGNESIUM 2.1 mg/dL (1.8-2.4); SALICYLATE < 2.8 mg/dL (2.8-20.0); SGOT 31 U/L (15-37); SGPT 25 U/L (30-65); TOTAL BILIRUBIN 1.6 mg/dL (<0.1-1.0); TOTAL PROTEIN 8.1 g/dL (6.4-8.2); TROPONIN-I < 0.04 ng/mL (<0.06)
[2017-11-09 05:51] LABS: APTT 23.8 Seconds (24.5-32.8); D-DIMER 0.27 ug/mLFEU (0.19-0.50)
[2017-11-09 06:18] VITALS: BP 138/84
[2017-11-09 06:30] VITALS: BP 157/85
[2017-11-09 10:17] LABS: LIPASE 104 U/L (73-393)
[2017-11-09 12:50] VITALS: BP 140/85
[2017-11-09 16:45] VITALS: BP 125/71
[2017-11-09 19:47] VITALS: BP 130/71
[2017-11-10] VITALS: BP 117/72
[2017-11-10 05:23] VITALS: BP 126/88
[2017-11-10 06:20] LABS: ABSOLUTE NEUTROPHILS 4.6 thou/uL (1.4-8.2); BASOPHILS 1.3 % (0.0-2.0); EOSINOPHILS 1.3 % (0.0-3.0); HEMATOCRIT 37.2 % (42.0-52.0); LYMPHOCYTES 23.8 % (24.0-44.0); MCH 34.2 pg (26.0-34.0); MCHC 34.2 g/dL (28.0-37.0); MCV 99.8 fL (80.0-100.0); MONOCYTES 11.7 % (1.0-8.0); POLYS 61.9 % (36.0-66.0); RBC 3.72 mil/uL (4.50-6.00); WBC 7.5 thou/uL (4.0-11.0)
[2017-11-10 06:31] LABS: HEMOGLOBIN 12.7 gm/dL (14.0-18.0); PLATELET COUNT 227 thou/uL (150-400)
[2017-11-10 06:34] LABS: CALCIUM 8.6 mg/dL (8.5-10.1); CREATININE 0.7 mg/dL (0.7-1.3)
[2017-11-10 08:23] VITALS: BP 119/79
[2017-11-10 12:00] VITALS: BP 130/79
== END 2017-11-10 13:20 | disposition left against medical advice (07) | DRG 641 ==
LOC: ER 05:08 → 3W 05:59 → EROBS 05:59 → 3W 06:22
PROVIDERS: Emergency Medicine; Nurse Practitioner
DX: E87.6 Hypokalemia (principal); F10.239 Alcohol dependence with withdrawal, unspecified; F41.9 Anxiety disorder, unspecified; I10 Essential (primary) hypertension; F17.210 Nicotine dependence, cigarettes, uncomplicated; F10.229 Alcohol dependence with intoxication, unspecified; Z60.2 Problems related to living alone; Z53.21 Procedure and treatment not carried out due to patient leaving prior to being seen by health care provider; Z88.6 Allergy status to analgesic agent; Z91.013 Allergy to seafood; Z82.49 Family history of ischemic heart disease and other diseases of the circulatory system; Z79.82 Long term (current) use of aspirin; Z80.3 Family history of malignant neoplasm of breast; Z79.899 Other long term (current) drug therapy
CPT/HCPCS: 10879

== ENCOUNTER 2017-12-25 09:45 | Emergency (ER) | payer OTHER ==
[~2017-12-25] VITALS: Ht 170.2 cm; Wt 63.5 kg
[2017-12-25 10:46] LABS: ABSOLUTE NEUTROPHILS 4.1 thou/uL (1.4-8.2); BASOPHILS 0.8 % (0.0-2.0); EOSINOPHILS 1.4 % (0.0-3.0); HEMATOCRIT 47.9 % (42.0-52.0); HEMOGLOBIN 16.4 gm/dL (14.0-18.0); LYMPHOCYTES 26.2 % (24.0-44.0); MCHC 34.3 g/dL (28.0-37.0); MCV 99.2 fL (80.0-100.0); MONOCYTES 6.7 % (1.0-8.0); PLATELET COUNT 319 thou/uL (150-400); POLYS 64.9 % (36.0-66.0); RBC 4.82 mil/uL (4.50-6.00); RDW 12.9 % (10.5-14.5); WBC 6.4 thou/uL (4.0-11.0)
[2017-12-25 11:01] LABS: PROTIME 9.8 Seconds (9.3-11.4)
[2017-12-25 11:09] LABS: CALCIUM 9.8 mg/dL (8.5-10.1); CREATININE 0.9 mg/dL (0.7-1.3)
[2017-12-25 11:15] LABS: ALBUMIN 4.5 g/dL (3.4-5.0); TOTAL BILIRUBIN 0.5 mg/dL (<0.1-1.0); TOTAL PROTEIN 8.4 g/dL (6.4-8.2)
[2017-12-25] MEDS ORDERED: NORCO 5-325 TA1 EACH PO (12:19)
== END 2017-12-25 12:57 | disposition home or self-care (01) ==
LOC: ER 09:45
PROVIDERS: Nurse Practitioner Family
DX: S20.211A Contusion of right front wall of thorax, initial encounter (principal); I10 Essential (primary) hypertension; F41.9 Anxiety disorder, unspecified; F10.20 Alcohol dependence, uncomplicated; F17.210 Nicotine dependence, cigarettes, uncomplicated; Z88.5 Allergy status to narcotic agent; Z91.013 Allergy to seafood; W11.XXXA Fall on and from ladder, initial encounter; Y93.89 Activity, other specified; Y92.89 Other specified places as the place of occurrence of the external cause; Y99.8 Other external cause status

== ENCOUNTER 2018-03-17 19:06 | Emergency (ER) | payer OTHER ==
[~2018-03-17] VITALS: Ht 167.6 cm; Wt 72.6 kg
--- NOTE | ~2018-03-17 | EKG ---
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
[2018-03-17 19:35] LABS: ABSOLUTE NEUTROPHILS 4.7 thou/uL (1.4-8.2); BASOPHILS 1.3 % (0.0-2.0); EOSINOPHILS 1.2 % (0.0-3.0); HEMATOCRIT 40.9 % (42.0-52.0); HEMOGLOBIN 14.1 gm/dL (14.0-18.0); LYMPHOCYTES 31.9 % (24.0-44.0); MCH 33.8 pg (26.0-34.0); MCHC 34.6 g/dL (28.0-37.0); MCV 97.8 fL (80.0-100.0); PLATELET COUNT 295 thou/uL (150-400); POLYS 61.6 % (36.0-66.0); RBC 4.18 mil/uL (4.50-6.00); RDW 12.7 % (10.5-14.5); WBC 7.6 thou/uL (4.0-11.0)
[2018-03-17 19:45] LABS: ANION GAP 8 mmol/L (7-16); BUN 16 mg/dL (7-18); CALCIUM 8.8 mg/dL (8.5-10.1); CHLORIDE 110 mmol/L (98-107); CO2 27 mmol/L (21-32); CREATININE 0.8 mg/dL (0.7-1.3); GLUCOSE 101 mg/dL (74-106); POTASSIUM 3.2 mmol/L (3.5-5.1); SODIUM 145 mmol/L (136-145)
[2018-03-17 19:53] LABS: TROPONIN-I <0.06 ng/mL (<0.06)
[2018-03-17 20:15] LABS: ALBUMIN 3.5 g/dL (3.4-5.0); DIRECT BILIRUBIN < 0.1 mg/dL (<0.1-0.3); SGOT 22 U/L (15-37); SGPT 22 U/L (30-65); TOTAL BILIRUBIN 0.1 mg/dL (<0.1-1.0); TOTAL PROTEIN 6.9 g/dL (6.4-8.2)
[2018-03-17] MEDS ORDERED: MOBIC15 MG PO (21:19)
== END 2018-03-17 21:50 | disposition home or self-care (01) ==
LOC: ER 19:06
PROVIDERS: Physician Assistant
DX: S22.32XA Fracture of one rib, left side, initial encounter for closed fracture (principal); F10.129 Alcohol abuse with intoxication, unspecified; F17.210 Nicotine dependence, cigarettes, uncomplicated; I10 Essential (primary) hypertension; F41.9 Anxiety disorder, unspecified; Z88.5 Allergy status to narcotic agent; Z91.013 Allergy to seafood; Y90.0 Blood alcohol level of less than 20 mg/100 ml; W11.XXXA Fall on and from ladder, initial encounter; Y93.89 Activity, other specified; Y92.89 Other specified places as the place of occurrence of the external cause; Y99.8 Other external cause status

== ENCOUNTER 2018-03-18 23:23 | Emergency (ER) | payer OTHER ==
[~2018-03-18] VITALS: Ht 170.2 cm; Wt 65.8 kg
--- NOTE | ~2018-03-18 | EKG ---
[address] [address] ELECTROCARDIOGRAM REPORT Name: CHELLY QURESHI [facility] [id number] Admission: 03/18/18 Attend Phys: Discharge: 03/19/18 Date of : 68 Report #: [id number] THIS REPORT FOR: //name// 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
[~2018-03-18 23:23] MED LIST changes: +MOBIC15 MG PO
[2018-03-19] MEDS ORDERED: NORCO 5-325 TA1 EACH PO (00:24)
== END 2018-03-19 00:32 | disposition home or self-care (01) ==
LOC: ER 23:23
DX: S22.32XA Fracture of one rib, left side, initial encounter for closed fracture (principal); I10 Essential (primary) hypertension; F17.210 Nicotine dependence, cigarettes, uncomplicated; X58.XXXA Exposure to other specified factors, initial encounter; Y93.89 Activity, other specified; Y92.89 Other specified places as the place of occurrence of the external cause; Y99.8 Other external cause status

== ENCOUNTER 2018-03-21 23:26 | Emergency (ER) | payer OTHER ==
[~2018-03-21] VITALS: Ht 170.2 cm; Wt 65.8 kg
== END 2018-03-22 00:20 | disposition left against medical advice (07) ==
LOC: ER 23:26
DX: F10.129 Alcohol abuse with intoxication, unspecified (principal); F17.210 Nicotine dependence, cigarettes, uncomplicated; F41.9 Anxiety disorder, unspecified; I10 Essential (primary) hypertension; Z88.5 Allergy status to narcotic agent; Z91.013 Allergy to seafood

== ENCOUNTER 2018-03-23 11:40 | Inpatient (IN) | payer OTHER ==
[~2018-03-23] VITALS: Ht 172.7 cm; Wt 63.5 kg
[2018-03-23] VITALS (22 sets, daily range): BP systolic 91–156; BP diastolic 49–97
[2018-03-23 12:04] LABS: ABSOLUTE NEUTROPHILS 9.8 thou/uL (1.4-8.2); BASOPHILS 0.6 % (0.0-2.0); HEMOGLOBIN 14.9 gm/dL (14.0-18.0); LYMPHOCYTES 14.7 % (24.0-44.0); MCH 33.2 pg (26.0-34.0); MCHC 33.8 g/dL (28.0-37.0); MCV 98.2 fL (80.0-100.0); MONOCYTES 2.8 % (1.0-8.0); PLATELET COUNT 340 thou/uL (150-400); POLYS 81.9 % (36.0-66.0); RBC 4.48 mil/uL (4.50-6.00)
[2018-03-23 12:10] LABS: CALCIUM 8.4 mg/dL (8.5-10.1); CREATININE 1.1 mg/dL (0.7-1.3); POTASSIUM 3.5 mmol/L (3.5-5.1)
[2018-03-23 12:16] LABS: ALBUMIN 3.6 g/dL (3.4-5.0); TOTAL BILIRUBIN 0.5 mg/dL (<0.1-1.0); TOTAL PROTEIN 7.1 g/dL (6.4-8.2)
[2018-03-23 13:27] LABS: URINE BILIRUBIN NEGATIVE (Negative); URINE BLOOD TRACE (Negative); URINE CLARITY CLEAR; URINE COLOR YELLOW; URINE GLUCOSE-RANDOM* NEGATIVE (Negative); URINE KETONES 2+ (Negative); URINE LEUKOCYTES-REFLEX NEGATIVE (Negative); URINE NITRITE-REFLEX NEGATIVE (Negative); URINE PROTEIN (DIPSTICK) NEGATIVE (Negative); URINE SPECIFIC GRAVITY >= 1.030 (1.005-1.035); URINE UROBILINOGEN 0.2 E.U./dl (0.2-1.0)
[2018-03-23 13:33] LABS: AMP/METHAMP Negative (Negative); BARBITURATES Negative (Negative); BENZODIAZEPINES Negative (Negative); COCAINE Negative (Negative); METHADONE Negative (Negative); OPIATES Negative (Negative); PCP Negative (Negative)
[2018-03-23 16:30] LABS: FOLIC ACID > 100.0 ng/mL (8.6-58.9)
[2018-03-24] VITALS (21 sets, daily range): BP systolic 105–161; BP diastolic 63–132
[2018-03-25] VITALS (22 sets, daily range): BP systolic 112–176; BP diastolic 63–93
[2018-03-25 09:46] LABS: ALBUMIN 3.2 g/dL (3.4-5.0); CALCIUM 8.6 mg/dL (8.5-10.1); CREATININE 0.7 mg/dL (0.7-1.3); PHOSPHORUS 2.5 mg/dL (2.5-4.9); POTASSIUM 3.9 mmol/L (3.5-5.1); TOTAL BILIRUBIN 0.6 mg/dL (<0.1-1.0); TOTAL PROTEIN 6.4 g/dL (6.4-8.2)
[2018-03-26] VITALS (17 sets, daily range): BP systolic 112–149; BP diastolic 47–85
[2018-03-27] VITALS (12 sets, daily range): BP systolic 93–127; BP diastolic 53–78
[2018-03-27 12:01] LABS: ABSOLUTE NEUTROPHILS 6.1 thou/uL (1.4-8.2); BASOPHILS 0.7 % (0.0-2.0); EOSINOPHILS 1.7 % (0.0-3.0); HEMATOCRIT 39.6 % (42.0-52.0); HEMOGLOBIN 13.8 gm/dL (14.0-18.0); LYMPHOCYTES 19.9 % (24.0-44.0); MCH 33.9 pg (26.0-34.0); MCHC 34.8 g/dL (28.0-37.0); MCV 97.6 fL (80.0-100.0); MONOCYTES 9.3 % (1.0-8.0); PLATELET COUNT 200 thou/uL (150-400); POLYS 68.4 % (36.0-66.0); RBC 4.06 mil/uL (4.50-6.00)
[2018-03-27 12:13] LABS: CREATININE 0.8 mg/dL (0.7-1.3)
[2018-03-28] VITALS (25 sets, daily range): BP systolic 83–162; BP diastolic 30–90
[2018-03-28 05:27] LABS: ABSOLUTE NEUTROPHILS 3.9 thou/uL (1.4-8.2); BASOPHILS 0.6 % (0.0-2.0); EOSINOPHILS 2.2 % (0.0-3.0); HEMOGLOBIN 13.8 gm/dL (14.0-18.0); MCHC 33.8 g/dL (28.0-37.0); MCV 97.8 fL (80.0-100.0); MONOCYTES 8.9 % (1.0-8.0); PLATELET COUNT 214 thou/uL (150-400); POLYS 57.3 % (36.0-66.0); RBC 4.19 mil/uL (4.50-6.00); RDW 13.1 % (10.5-14.5); WBC 6.8 thou/uL (4.0-11.0)
[2018-03-28 05:40] LABS: CALCIUM 8.9 mg/dL (8.5-10.1); CREATININE 0.9 mg/dL (0.7-1.3); POTASSIUM 3.7 mmol/L (3.5-5.1)
[2018-03-29] VITALS (16 sets, daily range): BP systolic 116–153; BP diastolic 58–90
[2018-03-30 04:27] VITALS: BP 130/83
[2018-03-30 07:41] VITALS: BP 142/92
[2018-03-30 11:03] VITALS: BP 139/87
[2018-03-30] MEDS ORDERED: NICOTINE TRANSD14 M1 TRANSDERM (13:01)
[2018-03-30] MEDS ORDERED: IBUPROFEN 400400 M2 PO (13:01)
[2018-03-30] MEDS ORDERED: REMERON15 MG PO (13:01)
[2018-03-30] MEDS ORDERED: LISINOPRIL10 MG PO (13:01)
[2018-03-30] MEDS ORDERED: HYDROCODON-ACE1 EAC7 PO (13:01)
[2018-03-30] MEDS ORDERED: PEPCID20 MG PO (13:01)
[2018-03-30] MEDS ORDERED: MULTIVITAMINS1 EAC7 PO (13:01)
[2018-03-30] MEDS ORDERED: VITAMIN B-1100 M2 PO (13:01)
[2018-03-30] MEDS ORDERED: VISTARIL 25 MG25 M1 PO (13:22)
[2018-03-30 14:33] VITALS: BP 139/87
== END 2018-03-30 15:06 | disposition home or self-care (01) | DRG 206 ==
LOC: ER 11:40 → EROBS 13:47 → ICU 13:47 → 3W 03-29 17:36
PROVIDERS: Family Medicine; Hospitalist; Nurse Practitioner Family
DX: S22.32XA Fracture of one rib, left side, initial encounter for closed fracture (principal); E87.1 Hypo-osmolality and hyponatremia; G93.40 Encephalopathy, unspecified; F10.231 Alcohol dependence with withdrawal delirium; F10.221 Alcohol dependence with intoxication delirium; I10 Essential (primary) hypertension; E16.2 Hypoglycemia, unspecified; F17.210 Nicotine dependence, cigarettes, uncomplicated; R25.1 Tremor, unspecified; Z60.2 Problems related to living alone; F32.9 Major depressive disorder, single episode, unspecified; F41.8 Other specified anxiety disorders; Z79.899 Other long term (current) drug therapy; Z88.6 Allergy status to analgesic agent; Z91.013 Allergy to seafood; Z82.49 Family history of ischemic heart disease and other diseases of the circulatory system; Z80.3 Family history of malignant neoplasm of breast; Z23 Encounter for immunization
CPT/HCPCS: 10203; 10879

== ENCOUNTER 2018-05-14 05:30 | Emergency (ER) | payer OTHER ==
[~2018-05-14] VITALS: Ht 170.2 cm; Wt 70.3 kg
[~2018-05-14 05:30] MED LIST changes: +HYDROCODON-ACE1 EAC7 PO; +IBUPROFEN 400400 M2 PO; +LISINOPRIL10 MG PO; +MULTIVITAMINS1 EAC7 PO; +NICOTINE TRANSD14 M1 TRANSDERM; +PEPCID20 MG PO; +REMERON15 MG PO; +VISTARIL 25 MG25 M1 PO
[2018-05-14 07:06] VITALS: BP 120/76
[2018-05-14] MEDS ORDERED: NORCO 5-325 TA1 EACH PO (07:07)
== END 2018-05-14 08:35 | disposition home or self-care (01) ==
LOC: ER 05:30
DX: S00.83XA Contusion of other part of head, initial encounter (principal); S20.211A Contusion of right front wall of thorax, initial encounter; W13.9XXA Fall from, out of or through building, not otherwise specified, initial encounter; Y93.89 Activity, other specified; Y92.89 Other specified places as the place of occurrence of the external cause; Y99.8 Other external cause status

== ENCOUNTER 2018-05-17 20:21 | Emergency (ER) | payer OTHER ==
[~2018-05-17] VITALS: Ht 170.2 cm; Wt 70.3 kg
--- NOTE | ~2018-05-17 | EKG ---
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: OLIMPIA : 1970 Requested By: Cristobal Santana Order Number: [id number] MD: Rachid Vázquez Measurements Intervals [place] Rate: 78 P: 85 [place]: 165 QRS: 60 QRSD: 140 T: 36 QT: 374 QTc: 426 Interpretive Statements Sinus rhythm No significant abnormality Compared to ECG 03/18/2018 23:30:04 No significant change was found Electronically Signed On 05-18-2018 8:01:17 DIRECTOR FAMILY by Rachid Vázquez [email or web address] <ELECTRONICALLY SIGNED> By: Rachid Vázquez MD, [facility] 05/18/18 0801 2035 34 Rachid Vázquez MD, FACC /EPI
[2018-05-17 20:24] VITALS: BP 135/78
[2018-05-17] MEDS ORDERED: NORCO 5-325 TA1 EACH PO (21:15)
== END 2018-05-17 21:37 | disposition home or self-care (01) ==
LOC: ER 20:21
DX: S20.211A Contusion of right front wall of thorax, initial encounter (principal); F17.210 Nicotine dependence, cigarettes, uncomplicated; F41.9 Anxiety disorder, unspecified; I10 Essential (primary) hypertension; Z88.5 Allergy status to narcotic agent; Z91.013 Allergy to seafood; W20.8XXA Other cause of strike by thrown, projected or falling object, initial encounter; Y92.89 Other specified places as the place of occurrence of the external cause; Y93.89 Activity, other specified; Y99.8 Other external cause status

== ENCOUNTER 2018-05-20 10:20 | Emergency (ER) | payer OTHER ==
[~2018-05-20] VITALS: Ht 170.2 cm; Wt 68.0 kg
[2018-05-20 10:22] VITALS: BP 111/74
[2018-05-20] MEDS ORDERED: NORCO 5-325 TA1 EACH PO (10:34)
[2018-05-20] MEDS ORDERED: IBUPROFEN 600600 M1 PO (10:37)
== END 2018-05-20 10:45 | disposition home or self-care (01) ==
LOC: ER 10:20
DX: S20.311A Abrasion of right front wall of thorax, initial encounter (principal); F17.210 Nicotine dependence, cigarettes, uncomplicated; F41.9 Anxiety disorder, unspecified; I10 Essential (primary) hypertension; Z88.5 Allergy status to narcotic agent; Z91.013 Allergy to seafood; W22.8XXA Striking against or struck by other objects, initial encounter; Y92.89 Other specified places as the place of occurrence of the external cause; Y93.89 Activity, other specified; Y99.8 Other external cause status

== ENCOUNTER 2018-05-21 12:53 | Emergency (ER) | payer OTHER ==
[~2018-05-21] VITALS: Ht 170.2 cm; Wt 63.5 kg
[~2018-05-21 12:53] MED LIST changes: +IBUPROFEN 600600 M1 PO
[2018-05-21 13:22] LABS: ABSOLUTE NEUTROPHILS 8.4 thou/uL (1.4-8.2); BASOPHILS 0.8 % (0.0-2.0); EOSINOPHILS 0.7 % (0.0-3.0); HEMOGLOBIN 14.3 gm/dL (14.0-18.0); LYMPHOCYTES 25.1 % (24.0-44.0); MCH 32.5 pg (26.0-34.0); MCHC 33.3 g/dL (28.0-37.0); MCV 97.5 fL (80.0-100.0); MONOCYTES 4.8 % (1.0-8.0); PLATELET COUNT 311 thou/uL (150-400); POLYS 68.6 % (36.0-66.0); RBC 4.41 mil/uL (4.50-6.00); RDW 14.1 % (10.5-14.5); WBC 12.2 thou/uL (4.0-11.0)
[2018-05-21 13:27] LABS: ANION GAP 13 mmol/L (7-16); BUN 17 mg/dL (7-18); CHLORIDE 107 mmol/L (98-107); CO2 22 mmol/L (21-32); CREATININE 0.9 mg/dL (0.7-1.3); GLUCOSE 78 mg/dL (74-106); POTASSIUM 4.4 mmol/L (3.5-5.1); SODIUM 142 mmol/L (136-145)
[2018-05-21 13:35] LABS: ALBUMIN 3.8 g/dL (3.4-5.0); LIPASE 62 U/L (73-393); SGOT 40 U/L (15-37); SGPT 29 U/L (30-65); TOTAL BILIRUBIN 0.5 mg/dL (<0.1-1.0); TOTAL PROTEIN 7.1 g/dL (6.4-8.2); TROPONIN-I <0.06 ng/mL (<0.06)
[2018-05-21 13:58] VITALS: BP 117/74
== END 2018-05-21 13:59 | disposition home or self-care (01) ==
LOC: ER 12:53
PROVIDERS: Physician Assistant
DX: S22.41XG Multiple fractures of ribs, right side, subsequent encounter for fracture with delayed healing (principal); F10.129 Alcohol abuse with intoxication, unspecified; F17.210 Nicotine dependence, cigarettes, uncomplicated; F41.9 Anxiety disorder, unspecified; I10 Essential (primary) hypertension; Z88.5 Allergy status to narcotic agent; Z91.013 Allergy to seafood; W18.39XD Other fall on same level, subsequent encounter; Y90.0 Blood alcohol level of less than 20 mg/100 ml

== ENCOUNTER 2018-05-22 07:38 | Inpatient (IN) | payer OTHER ==
[2018-05-22] VITALS (7 sets, daily range): BP systolic 102–156; BP diastolic 61–91
[~2018-05-22] VITALS: Ht 170.2 cm; Wt 61.9 kg
--- NOTE | ~2018-05-22 | EKG ---
[address] [address] ELECTROCARDIOGRAM REPORT Name: CHELLY QURESHI [facility] [id number] Admission: 05/22/18 Attend Phys: Discharge: Date of : [birth year] Report #: [id number] THIS REPORT FOR: //name// [facility] ED Test Date: 2018-05-22 Test Time: 09:35:24 Pat Name: CHELLY QURESHI Department: Room: Gender: M Internal Controls Analyst: ANAHI : 1970 Requested By: Diallo Paige Order Number: [id number] MD: Measurements Intervals [place] Rate: 80 P: 85 [place]: 161 QRS: 79 QRSD: 88 T: 56 QT: 381 QTc: 440 Interpretive Statements Sinus rhythm Compared to ECG 05/17/2018 20:35:22 No significant changes [email or web address] By: 4 4 Epiphany MD oNel /EPI
--- NOTE | ~2018-05-22 | PATH ---
[facility] [address] [place] [address] PATHOLOGY RPT PROCEDURE Name: KAREEM FUENTES Room #: 363-P ADM IN M.R.#: [id number] Admission: 05/22/18 Date of : 68 Discharge: Report #: [id number] Path Case #: [id number] [facility] Accession Number: [id number] . 01 Material submitted: . BX OF GASTRITIS . 01 Clinical history: . Hematemesis, esophagitis, gastritis, duodenal ulcer . 02 Diagnosis: Gastric mucosa, gastritis rule out H. pylori, endoscopic biopsy: - Mild reactive gastropathy. - Negative for intestinal metaplasia or atrophy. - Negative for Helicobacter pylori (properly controlled immunohistochemical stain performed). (IUV/db; 05/23/18) LBQ/05/23/2018 . 02 Electronically signed: . Bonnie Ortiz MD, Pathologist NPI- [id number] . 01 Gross description: . The specimen is received in formalin, labeled "FuentesKareem garay, BX gastritis, rule out H. pylori", are three white soft tissues 0.8 x 0.3 x 0.1 cm in aggregate, entirely submitted in A1. (SWS; 05/22/2018) SHS/SHS . 02 Pathologist provided ICD-10: K31.9 . 02 CPT . 592209, T34912 Specimen Comment: A courtesy copy of this report has been sent to Specimen Comment: [phone], . Specimen Comment: Report sent to / DR HORN Specimen Comment: A duplicate report has been generated due to demographic updates. Performed at: [address] [id number] MD Franck Weaver MD Phone: [phone] Performed at: [address] [id number] [address] [address] PATHOLOGY RPT PROCEDURE Name: KAREEM FUENTES Room #: 363-P ADM IN M.R.#: [id number] Admission: 05/22/18 Date of : 68 Discharge: Report #: [id number] Path Case #: [id number] MD Bonnie Ortiz MD Phone: [phone]
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
[2018-05-22 08:02] LABS: ABSOLUTE NEUTROPHILS 12.1 thou/uL (1.4-8.2); BASOPHILS 0.5 % (0.0-2.0); EOSINOPHILS 0.5 % (0.0-3.0); HEMATOCRIT 46.7 % (42.0-52.0); LYMPHOCYTES 13.8 % (24.0-44.0); MCH 33.8 pg (26.0-34.0); MCHC 34.2 g/dL (28.0-37.0); MCV 98.9 fL (80.0-100.0); MONOCYTES 2.1 % (1.0-8.0); PLATELET COUNT 328 thou/uL (150-400); POLYS 83.1 % (36.0-66.0); RBC 4.72 mil/uL (4.50-6.00); RDW 14.6 % (10.5-14.5); WBC 14.5 thou/uL (4.0-11.0)
[2018-05-22 08:12] LABS: ANION GAP 14 mmol/L (7-16); BUN 18 mg/dL (7-18); CALCIUM 8.9 mg/dL (8.5-10.1); CHLORIDE 108 mmol/L (98-107); CO2 21 mmol/L (21-32); CREATININE 1.1 mg/dL (0.7-1.3); GLUCOSE 72 mg/dL (74-106); SODIUM 143 mmol/L (136-145)
[2018-05-22 08:18] LABS: ALBUMIN 4.4 g/dL (3.4-5.0); SALICYLATE 4.7 mg/dL (2.8-20.0); SGOT 42 U/L (15-37); SGPT 34 U/L (30-65); TOTAL BILIRUBIN 0.5 mg/dL (<0.1-1.0); TOTAL PROTEIN 7.8 g/dL (6.4-8.2)
[2018-05-22 08:34] LABS: URINE BILIRUBIN NEGATIVE (Negative); URINE BLOOD TRACE (Negative); URINE CLARITY CLEAR; URINE COLOR YELLOW; URINE GLUCOSE-RANDOM* NEGATIVE (Negative); URINE KETONES 1+ (Negative); URINE LEUKOCYTES-REFLEX NEGATIVE (Negative); URINE NITRITE-REFLEX NEGATIVE (Negative); URINE PROTEIN (DIPSTICK) NEGATIVE (Negative); URINE SPECIFIC GRAVITY 1.025 (1.005-1.035); URINE UROBILINOGEN 0.2 E.U./dl (0.2-1.0)
[2018-05-22 08:43] LABS: AMP/METHAMP Negative (Negative); BARBITURATES Negative (Negative); BENZODIAZEPINES POSITIVE (Negative); COCAINE Negative (Negative); METHADONE Negative (Negative); OPIATES Negative (Negative); PCP Negative (Negative)
[2018-05-22 10:16] LABS: MAGNESIUM 1.9 mg/dL (1.8-2.4); PHOSPHORUS 3.1 mg/dL (2.5-4.9)
[2018-05-22 10:46] LABS: FOLIC ACID 13.4 ng/mL (8.6-58.9)
[2018-05-22 16:46] LABS: HEMATOCRIT 42.3 % (42.0-52.0); HEMOGLOBIN 14.1 gm/dL (14.0-18.0)
[2018-05-23 04:30] VITALS: BP 137/79
[2018-05-23 05:51] LABS: ABSOLUTE NEUTROPHILS 7.3 thou/uL (1.4-8.2); BASOPHILS 0.7 % (0.0-2.0); EOSINOPHILS 1.7 % (0.0-3.0); HEMATOCRIT 39.4 % (42.0-52.0); HEMOGLOBIN 12.8 gm/dL (14.0-18.0); LYMPHOCYTES 24.9 % (24.0-44.0); MCH 32.4 pg (26.0-34.0); MCHC 32.6 g/dL (28.0-37.0); MCV 99.5 fL (80.0-100.0); MONOCYTES 6.8 % (1.0-8.0); POLYS 65.9 % (36.0-66.0); RBC 3.96 mil/uL (4.50-6.00); RDW 13.8 % (10.5-14.5); WBC 11.1 thou/uL (4.0-11.0)
[2018-05-23 05:54] LABS: PLATELET COUNT 210 thou/uL (150-400)
[2018-05-23 05:56] LABS: CALCIUM 7.9 mg/dL (8.5-10.1); CREATININE 0.9 mg/dL (0.7-1.3); MAGNESIUM 1.8 mg/dL (1.8-2.4); POTASSIUM 3.8 mmol/L (3.5-5.1)
[2018-05-23 08:00] VITALS: BP 10/87
[2018-05-23 11:43] VITALS: BP 142/91
[2018-05-23 15:26] VITALS: BP 148/90
[2018-05-23 19:16] VITALS: BP 130/87
[2018-05-24 04:32] VITALS: BP 156/95
[2018-05-24 05:26] LABS: HEMATOCRIT 40.9 % (42.0-52.0); HEMOGLOBIN 13.9 gm/dL (14.0-18.0); MCH 33.4 pg (26.0-34.0); MCV 98.1 fL (80.0-100.0); RBC 4.17 mil/uL (4.50-6.00); RDW 13.6 % (10.5-14.5); WBC 6.6 thou/uL (4.0-11.0)
[2018-05-24 05:37] LABS: CALCIUM 8.7 mg/dL (8.5-10.1); CREATININE 0.9 mg/dL (0.7-1.3); MAGNESIUM 1.7 mg/dL (1.8-2.4); PHOSPHORUS 3.6 mg/dL (2.5-4.9); POTASSIUM 3.6 mmol/L (3.5-5.1)
[2018-05-24 07:49] VITALS: BP 150/93
[2018-05-24 11:13] VITALS: BP 141/93
[2018-05-24 16:37] VITALS: BP 138/101; BP 140/92
[2018-05-24 20:16] VITALS: BP 148/98
[2018-05-25 03:41] VITALS: BP 126/70
[2018-05-25 08:10] VITALS: BP 125/86
[2018-05-25 10:51] LABS: HEMATOCRIT 46.1 % (42.0-52.0); HEMOGLOBIN 15.7 gm/dL (14.0-18.0); MCH 33.4 pg (26.0-34.0); MCV 98.1 fL (80.0-100.0); RBC 4.7 mil/uL (4.50-6.00); WBC 6.6 thou/uL (4.0-11.0)
[2018-05-25 11:09] LABS: ALBUMIN 3.9 g/dL (3.4-5.0); CALCIUM 9.3 mg/dL (8.5-10.1); CREATININE 1.1 mg/dL (0.7-1.3); POTASSIUM 3.7 mmol/L (3.5-5.1); TOTAL BILIRUBIN 0.7 mg/dL (<0.1-1.0); TOTAL PROTEIN 7.5 g/dL (6.4-8.2)
[2018-05-25 11:59] VITALS: BP 139/99
[2018-05-25] MEDS ORDERED: PANTOPRAZOLE SO40 M1 PO (16:58)
[2018-05-25] MEDS ORDERED: VITAMIN B-1100 M2 PO (16:58)
[2018-05-25 17:19] VITALS: BP 139/99
== END 2018-05-25 17:52 | disposition home or self-care (01) | DRG 381 ==
LOC: ER 07:38 → EROBS 09:33 → 3W 09:33
PROVIDERS: Emergency Medicine; Hospitalist; Internal Medicine; Nurse Practitioner
PROC: 0DB68ZX Excision of Stomach, Via Natural or Artificial Opening Endoscopic, Diagnostic (ICD-10-PCS; principal; 2018-05-22)
DX: K22.11 Ulcer of esophagus with bleeding (principal); F10.239 Alcohol dependence with withdrawal, unspecified; K29.71 Gastritis, unspecified, with bleeding; F41.9 Anxiety disorder, unspecified; K26.9 Duodenal ulcer, unspecified as acute or chronic, without hemorrhage or perforation; F17.210 Nicotine dependence, cigarettes, uncomplicated; K21.9 Gastro-esophageal reflux disease without esophagitis; Z60.2 Problems related to living alone; F10.229 Alcohol dependence with intoxication, unspecified; R04.0 Epistaxis; Z88.6 Allergy status to analgesic agent; I10 Essential (primary) hypertension; Z91.013 Allergy to seafood; Z82.49 Family history of ischemic heart disease and other diseases of the circulatory system; Z80.3 Family history of malignant neoplasm of breast; Z71.6 Tobacco abuse counseling; Z79.899 Other long term (current) drug therapy; Z87.828 Personal history of other (healed) physical injury and trauma; Z76.5 Malingerer [conscious simulation]; S20.211A Contusion of right front wall of thorax, initial encounter; W18.39XA Other fall on same level, initial encounter; Y93.89 Activity, other specified; Y92.89 Other specified places as the place of occurrence of the external cause; Y99.8 Other external cause status
CPT/HCPCS: 10879; 62110; 62900

== ENCOUNTER 2018-05-29 06:14 | Emergency (ER) | payer OTHER ==
[~2018-05-29] VITALS: Ht 170.2 cm; Wt 63.5 kg
--- NOTE | ~2018-05-29 | EKG ---
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: FEDERICO DEL REAL : 1970 Requested By: Diallo Paige Order Number: [id number] MD: Rachid Vázquez Measurements Intervals [place] Rate: 88 P: 89 [place]: 163 QRS: 80 QRSD: 97 T: 48 QT: 355 QTc: 430 Interpretive Statements Sinus rhythm Normal tracing Compared to ECG 05/22/2018 09:35:24 No significant abnormality Electronically Signed On 05-29-2018 8:57:59 PAPERHANGER CONTRACTOR by Rachid Vázquez [email or web address] <ELECTRONICALLY SIGNED> By: Rachid Vázquez MD, [facility] 05/29/18 0857 0628 0628 Rachid Vázquez MD, FACC /EPI
[~2018-05-29 06:14] MED LIST changes: +PANTOPRAZOLE SO40 M1 PO
[2018-05-29 06:33] LABS: ABSOLUTE NEUTROPHILS 4.5 thou/uL (1.4-8.2); EOSINOPHILS 2.3 % (0.0-3.0); HEMATOCRIT 44.4 % (42.0-52.0); HEMOGLOBIN 15.5 gm/dL (14.0-18.0); LYMPHOCYTES 25.6 % (24.0-44.0); MCH 34.2 pg (26.0-34.0); MCHC 34.9 g/dL (28.0-37.0); MCV 98.2 fL (80.0-100.0); MONOCYTES 8.5 % (1.0-8.0); PLATELET COUNT 322 thou/uL (150-400); POLYS 62.6 % (36.0-66.0); RBC 4.52 mil/uL (4.50-6.00); RDW 13.9 % (10.5-14.5); WBC 7.2 thou/uL (4.0-11.0)
[2018-05-29 06:41] LABS: ANION GAP 11 mmol/L (7-16); BUN 9 mg/dL (7-18); CALCIUM 9.4 mg/dL (8.5-10.1); CHLORIDE 102 mmol/L (98-107); CO2 27 mmol/L (21-32); GLUCOSE 105 mg/dL (74-106); POTASSIUM 3.7 mmol/L (3.5-5.1); SODIUM 140 mmol/L (136-145)
[2018-05-29 06:50] LABS: URINE BILIRUBIN NEGATIVE (Negative); URINE BLOOD NEGATIVE (Negative); URINE CLARITY CLEAR; URINE COLOR YELLOW; URINE GLUCOSE-RANDOM* NEGATIVE (Negative); URINE KETONES NEGATIVE (Negative); URINE LEUKOCYTES-REFLEX NEGATIVE (Negative); URINE NITRITE-REFLEX NEGATIVE (Negative); URINE PROTEIN (DIPSTICK) NEGATIVE (Negative); URINE SPECIFIC GRAVITY 1.025 (1.005-1.035); URINE UROBILINOGEN 0.2 E.U./dl (0.2-1.0)
[2018-05-29 06:51] LABS: ALBUMIN 4.3 g/dL (3.4-5.0); LIPASE 174 U/L (73-393); SALICYLATE 3.7 mg/dL (2.8-20.0); SGOT 37 U/L (15-37); SGPT 40 U/L (30-65); TOTAL BILIRUBIN 0.5 mg/dL (<0.1-1.0); TOTAL PROTEIN 7.9 g/dL (6.4-8.2); TROPONIN-I <0.06 ng/mL (<0.06)
[2018-05-29] MEDS ORDERED: PRILOSEC 20 MG20 MG PO (06:54)
[2018-05-29] MEDS ORDERED: ATIVAN1 MG PO (06:54)
[2018-05-29] MEDS ORDERED: ZOFRAN8 MG PO (06:54)
[2018-05-29 07:03] LABS: AMP/METHAMP Negative (Negative); BARBITURATES Negative (Negative); BENZODIAZEPINES POSITIVE (Negative); COCAINE Negative (Negative); METHADONE Negative (Negative); OPIATES Negative (Negative); PCP Negative (Negative)
[2018-05-29 07:35] VITALS: BP 135/88
== END 2018-05-29 07:43 | disposition home or self-care (01) ==
LOC: ER 06:14
PROVIDERS: Emergency Medicine
DX: R11.2 Nausea with vomiting, unspecified (principal); F41.9 Anxiety disorder, unspecified; F10.10 Alcohol abuse, uncomplicated; I10 Essential (primary) hypertension; F17.210 Nicotine dependence, cigarettes, uncomplicated; Z88.5 Allergy status to narcotic agent

== ENCOUNTER 2018-09-03 07:30 | Emergency (ER) | payer OTHER ==
[~2018-09-03] VITALS: Ht 170.2 cm; Wt 70.3 kg
[~2018-09-03 07:30] MED LIST changes: +PRILOSEC 20 MG20 MG PO; +ZOFRAN8 MG PO
[2018-09-03 08:18] LABS: ABSOLUTE NEUTROPHILS 6.2 thou/uL (1.4-8.2); BASOPHILS 0.8 % (0.0-2.0); EOSINOPHILS 1.6 % (0.0-3.0); HEMATOCRIT 45.6 % (42.0-52.0); HEMOGLOBIN 15.8 gm/dL (14.0-18.0); LYMPHOCYTES 20.1 % (24.0-44.0); MCH 33.2 pg (26.0-34.0); MCHC 34.6 g/dL (28.0-37.0); MCV 96.1 fL (80.0-100.0); MONOCYTES 5.3 % (1.0-8.0); PLATELET COUNT 308 thou/uL (150-400); POLYS 72.2 % (36.0-66.0); RBC 4.74 mil/uL (4.50-6.00); RDW 12.6 % (10.5-14.5); WBC 8.6 thou/uL (4.0-11.0)
[2018-09-03 08:23] LABS: CALCIUM 9.4 mg/dL (8.5-10.1); CREATININE 0.9 mg/dL (0.7-1.3)
[2018-09-03 08:28] LABS: ALBUMIN 4.2 g/dL (3.4-5.0); APTT 31.3 Seconds (24.5-32.8); TOTAL BILIRUBIN 0.5 mg/dL (<0.1-1.0); TOTAL PROTEIN 7.8 g/dL (6.4-8.2)
[2018-09-03 08:55] LABS: URINE BILIRUBIN NEGATIVE (Negative); URINE BLOOD NEGATIVE (Negative); URINE CLARITY CLEAR; URINE COLOR YELLOW; URINE GLUCOSE-RANDOM* NEGATIVE (Negative); URINE KETONES NEGATIVE (Negative); URINE LEUKOCYTES NEGATIVE (Negative); URINE NITRITE NEGATIVE (Negative); URINE PROTEIN (DIPSTICK) NEGATIVE (Negative); URINE UROBILINOGEN 0.2 E.U./dl (0.2-1.0)
[2018-09-03] MEDS ORDERED: NORFLEX100 MG PO (08:55)
[2018-09-03] MEDS ORDERED: TRAMADOL 50 MG50 MG PO (08:55)
[2018-09-03] MEDS ORDERED: NAPROSYN500 MG PO (08:55)
[2018-09-03 09:02] LABS: AMP/METHAMP Negative (Negative); BARBITURATES Negative (Negative); BENZODIAZEPINES Negative (Negative); COCAINE Negative (Negative); METHADONE Negative (Negative); OPIATES POSITIVE (Negative); PCP Negative (Negative)
[2018-09-03 09:09] VITALS: BP 126/79
[2018-09-03] MEDS ORDERED: NORCO 5-325 TA1 EACH PO (17:15)
== END 2018-09-03 09:34 | disposition home or self-care (01) ==
LOC: ER 07:30
PROVIDERS: Emergency Medicine
DX: S39.012A Strain of muscle, fascia and tendon of lower back, initial encounter (principal); I10 Essential (primary) hypertension; F41.9 Anxiety disorder, unspecified; F17.210 Nicotine dependence, cigarettes, uncomplicated; Z88.5 Allergy status to narcotic agent; Z91.013 Allergy to seafood; W11.XXXA Fall on and from ladder, initial encounter; Y93.89 Activity, other specified; Y92.89 Other specified places as the place of occurrence of the external cause; Y99.8 Other external cause status

== ENCOUNTER 2018-09-03 15:25 | Emergency (ER) | payer OTHER ==
[~2018-09-03] VITALS: Ht 170.2 cm; Wt 65.8 kg
[~2018-09-03 15:25] MED LIST changes: +NAPROSYN500 MG PO; +NORFLEX100 MG PO; +TRAMADOL 50 MG50 MG PO
[2018-09-03 16:27] LABS: ABSOLUTE NEUTROPHILS 11.5 thou/uL (1.4-8.2); BASOPHILS 0.6 % (0.0-2.0); EOSINOPHILS 0.5 % (0.0-3.0); HEMATOCRIT 43.3 % (42.0-52.0); HEMOGLOBIN 14.8 gm/dL (14.0-18.0); LYMPHOCYTES 9.9 % (24.0-44.0); MCHC 34.3 g/dL (28.0-37.0); MCV 96.5 fL (80.0-100.0); MONOCYTES 5.2 % (1.0-8.0); PLATELET COUNT 272 thou/uL (150-400); POLYS 83.8 % (36.0-66.0); RBC 4.48 mil/uL (4.50-6.00); RDW 12.4 % (10.5-14.5); WBC 13.7 thou/uL (4.0-11.0)
[2018-09-03 16:35] LABS: ANION GAP 11 mmol/L (7-16); BUN 12 mg/dL (7-18); CALCIUM 8.9 mg/dL (8.5-10.1); CHLORIDE 106 mmol/L (98-107); CO2 25 mmol/L (21-32); CREATININE 1.1 mg/dL (0.7-1.3); GLUCOSE 102 mg/dL (74-106); SODIUM 142 mmol/L (136-145)
[2018-09-03 16:41] LABS: ALBUMIN 3.9 g/dL (3.4-5.0); MAGNESIUM 2.2 mg/dL (1.8-2.4); SALICYLATE 4.7 mg/dL (2.8-20.0); SGOT 19 U/L (15-37); SGPT 20 U/L (30-65); TOTAL BILIRUBIN 0.4 mg/dL (<0.1-1.0); TOTAL PROTEIN 7.2 g/dL (6.4-8.2)
[2018-09-03] MEDS ORDERED: NORCO 5-325 TA1 EACH PO (17:15)
[2018-09-03 17:33] VITALS: BP 120/68
== END 2018-09-03 17:42 | disposition home or self-care (01) ==
LOC: ER 15:25
PROVIDERS: Emergency Medicine
DX: S39.012A Strain of muscle, fascia and tendon of lower back, initial encounter (principal); R56.9 Unspecified convulsions; I10 Essential (primary) hypertension; F41.9 Anxiety disorder, unspecified; F17.210 Nicotine dependence, cigarettes, uncomplicated; Z88.5 Allergy status to narcotic agent; Z88.8 Allergy status to other drugs, medicaments and biological substances; Z91.013 Allergy to seafood; W11.XXXA Fall on and from ladder, initial encounter; Y93.89 Activity, other specified; Y92.89 Other specified places as the place of occurrence of the external cause; Y99.8 Other external cause status

== ENCOUNTER 2018-09-25 08:46 | Emergency (ER) | payer OTHER ==
[~2018-09-25] VITALS: Ht 170.2 cm; Wt 68.0 kg
[2018-09-25 09:35] VITALS: BP 112/46
== END 2018-09-25 10:13 | disposition left against medical advice (07) ==
LOC: ER 08:46
DX: G89.29 Other chronic pain (principal); M54.9 Dorsalgia, unspecified; I10 Essential (primary) hypertension; F17.210 Nicotine dependence, cigarettes, uncomplicated

== ENCOUNTER 2018-10-06 00:55 | Emergency (ER) | payer OTHER ==
[~2018-10-06] VITALS: Ht 170.2 cm; Wt 65.8 kg
[2018-10-06 02:00] VITALS: BP 119/72
[2018-10-06 02:16] LABS: ABSOLUTE NEUTROPHILS 5.2 thou/uL (1.4-8.2); BASOPHILS 0.8 % (0.0-2.0); EOSINOPHILS 1.7 % (0.0-3.0); HEMATOCRIT 43.7 % (42.0-52.0); HEMOGLOBIN 15.2 gm/dL (14.0-18.0); LYMPHOCYTES 33.5 % (24.0-44.0); MCH 32.9 pg (26.0-34.0); MCHC 34.7 g/dL (28.0-37.0); MCV 94.6 fL (80.0-100.0); MONOCYTES 7.2 % (1.0-8.0); PLATELET COUNT 332 thou/uL (150-400); POLYS 56.8 % (36.0-66.0); RBC 4.62 mil/uL (4.50-6.00); WBC 9.1 thou/uL (4.0-11.0)
[2018-10-06 02:30] LABS: ALBUMIN 4.1 g/dL (3.4-5.0); ANION GAP 12 mmol/L (7-16); BUN 10 mg/dL (7-18); CALCIUM 9.8 mg/dL (8.5-10.1); CHLORIDE 100 mmol/L (98-107); CO2 28 mmol/L (21-32); CREATININE 0.8 mg/dL (0.7-1.3); DIRECT BILIRUBIN 0.1 mg/dL (<0.1-0.3); GLUCOSE 89 mg/dL (74-106); LIPASE 82 U/L (73-393); SGOT 48 U/L (15-37); SGPT 41 U/L (30-65); SODIUM 140 mmol/L (136-145); TOTAL BILIRUBIN 0.3 mg/dL (<0.1-1.0); TOTAL PROTEIN 7.9 g/dL (6.4-8.2); TROPONIN-I <0.06 ng/mL (<0.06)
[2018-10-06 02:47] LABS: POTASSIUM 2.7 mmol/L (3.5-5.1)
--- NOTE | 2018-10-06 08:22 | EKG ---
[place] [address] [address] [facility] [employer] [address] ELECTROCARDIOGRAM REPORT Name: CHELLY QURESHI [id number] ������������������ Admission: 10/06/18 ������������������ Attend Phys: Discharge: 10/06/18 ������������������ Date of : 68 Report #: [id number] ����������������������������������������������������������������� [id number] THIS REPORT FOR: //name// [facility] ED Test Date: 2018-10-06 Test Time: 01:04:08 Pat Name: CHELLY QURESHI Department: Room: Gender: M Pull Over: ASHUTOSH : 1970 Requested By: Nataly Siddiqui Order Number: [id number] MD: Chuy Garcia Measurements Intervals [place] Rate: 71 P: 93 [place]: 166 QRS: 79 QRSD: 103 T: 58 QT: 422 QTc: 459 Interpretive Statements Sinus rhythm Biatrial enlargement Compared to ECG 05/29/2018 06:28:59 Atrial abnormality now present ST (T wave) deviation now present Electronically Signed On 10-06-2018 8:21:57 CDT by Chuy Garcia [email or web address] ��������������������������������������������� <ELECTRONICALLY SIGNED> ���������������������������������������� By: Chuy Garcia MD ��������������������������������������������� 10/06/18820 3 3 Chuy Garcia MD /MARY KATE
[2018-10-06] MEDS ORDERED: POTASSIUM20 PO (21:04)
== END 2018-10-06 03:33 | disposition home or self-care (01) ==
LOC: ER 00:55
PROVIDERS: Emergency Medicine
DX: R07.89 Other chest pain (principal); F10.10 Alcohol abuse, uncomplicated; I10 Essential (primary) hypertension; F41.9 Anxiety disorder, unspecified; Z88.5 Allergy status to narcotic agent; Z91.013 Allergy to seafood; Z88.8 Allergy status to other drugs, medicaments and biological substances

== ENCOUNTER 2018-10-06 18:24 | Emergency (ER) | payer OTHER ==
[~2018-10-06] VITALS: Ht 170.2 cm; Wt 65.8 kg
[2018-10-06 18:43] LABS: HEMATOCRIT 42.4 % (42.0-52.0); HEMOGLOBIN 14.7 gm/dL (14.0-18.0); MCH 33.2 pg (26.0-34.0); MCHC 34.6 g/dL (28.0-37.0); RBC 4.42 mil/uL (4.50-6.00); RDW 13.4 % (10.5-14.5); WBC 9.7 thou/uL (4.0-11.0)
[2018-10-06 19:03] LABS: BUN 16 mg/dL (7-18); CALCIUM 9.6 mg/dL (8.5-10.1); CHLORIDE 98 mmol/L (98-107); CO2 28 mmol/L (21-32); GLUCOSE 101 mg/dL (74-106); TROPONIN-I <0.06 ng/mL (<0.06)
[2018-10-06 19:06] LABS: ANION GAP 6 mmol/L (7-16); SODIUM 132 mmol/L (136-145)
[2018-10-06 19:08] LABS: POTASSIUM 2.7 mmol/L (3.5-5.1)
[2018-10-06] MEDS ORDERED: POTASSIUM20 PO (21:04)
[2018-10-06 21:15] VITALS: BP 125/75
--- NOTE | 2018-10-08 13:26 | EKG ---
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1970 Requested By: Nataly Siddiqui Order Number: [id number] MD: Rachid Vázquez Measurements Intervals [place] Rate: 74 P: 80 [place]: 157 QRS: 74 QRSD: 102 T: 56 QT: 425 QTc: 472 Interpretive Statements Sinus rhythm Normal tracing Compared to ECG 10/06/2018 01:04:08 No significant change was found Electronically Signed On 10-08-2018 13:25:50 CDT by Rachid Vázquez [email or web address] ��������������������������������������������� <ELECTRONICALLY SIGNED> ���������������������������������������� By: Rachid Vázquez MD, [facility] ��������������������������������������������� 10/08/18 1325 1835 34 Rachid Vázquez MD, FACC /EPI
== END 2018-10-06 21:20 | disposition home or self-care (01) ==
LOC: ER 18:24
PROVIDERS: Emergency Medicine
DX: R07.89 Other chest pain (principal); E87.6 Hypokalemia; R11.0 Nausea; F41.9 Anxiety disorder, unspecified; I10 Essential (primary) hypertension; F17.210 Nicotine dependence, cigarettes, uncomplicated; Z88.5 Allergy status to narcotic agent; Z91.013 Allergy to seafood; Z88.8 Allergy status to other drugs, medicaments and biological substances

== ENCOUNTER 2018-11-09 08:11 | Emergency (ER) | payer OTHER ==
[~2018-11-09] VITALS: Ht 170.2 cm; Wt 68.0 kg
[~2018-11-09 08:11] MED LIST changes: +POTASSIUM20 PO
[2018-11-09] MEDS ORDERED: POTASSIUM20 PO (08:49)
[2018-11-09 08:54] LABS: HEMATOCRIT 49.3 % (42.0-52.0); HEMOGLOBIN 16.6 gm/dL (14.0-18.0); MCHC 33.6 g/dL (28.0-37.0); MCV 98.1 fL (80.0-100.0); RBC 5.02 mil/uL (4.50-6.00); RDW 13.4 % (10.5-14.5); WBC 7.8 thou/uL (4.0-11.0)
[2018-11-09 09:09] LABS: ANION GAP 9 mmol/L (7-16); BUN 8 mg/dL (7-18); CALCIUM 10.1 mg/dL (8.5-10.1); CHLORIDE 102 mmol/L (98-107); CO2 29 mmol/L (21-32); GLUCOSE 108 mg/dL (74-106); POTASSIUM 3.8 mmol/L (3.5-5.1); SODIUM 140 mmol/L (136-145)
[2018-11-09 09:18] LABS: TROPONIN-I <0.06 ng/mL (<0.06)
[2018-11-09 10:10] VITALS: BP 113/82
--- NOTE | 2018-11-10 09:22 | EKG ---
[address] 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1970 Requested By: Nataly Siddiqui Order Number: [id number] MD: Rachid Vázquez Measurements Intervals [place] Rate: 89 P: 87 [place]: 164 QRS: 85 QRSD: 91 T: 53 QT: 340 QTc: 414 Interpretive Statements Sinus rhythm Poor R wave progression Compared to ECG 10/06/2018 18:35:58 No significant change was found Electronically Signed On 11-10-2018 9:22:36 CDT by Rachid Vázquez [email or web address] ��������������������������������������������� <ELECTRONICALLY SIGNED> ���������������������������������������� By: Rachid Vázquez MD, [facility] ��������������������������������������������� 11/10/18921 D: 05/815 5 Rachid Vázquez MD, FACC /EPI
== END 2018-11-09 10:10 | disposition home or self-care (01) ==
LOC: ER 08:11
PROVIDERS: Emergency Medicine
DX: F41.9 Anxiety disorder, unspecified (principal); R06.00 Dyspnea, unspecified; F17.210 Nicotine dependence, cigarettes, uncomplicated; I10 Essential (primary) hypertension; Z88.5 Allergy status to narcotic agent; Z88.8 Allergy status to other drugs, medicaments and biological substances; Z91.013 Allergy to seafood

== ENCOUNTER 2018-11-17 12:15 | Emergency (ER) | payer OTHER ==
[~2018-11-17] VITALS: Ht 170.2 cm; Wt 68.0 kg
[2018-11-17 13:11] LABS: ABSOLUTE NEUTROPHILS 6.4 thou/uL (1.4-8.2); EOSINOPHILS 0.6 % (0.0-3.0); HEMATOCRIT 46.5 % (42.0-52.0); HEMOGLOBIN 15.9 gm/dL (14.0-18.0); LYMPHOCYTES 27.5 % (24.0-44.0); MCH 33.4 pg (26.0-34.0); MCHC 34.1 g/dL (28.0-37.0); MCV 97.8 fL (80.0-100.0); MONOCYTES 3.7 % (1.0-8.0); PLATELET COUNT 327 thou/uL (150-400); POLYS 67.2 % (36.0-66.0); RBC 4.75 mil/uL (4.50-6.00); RDW 13.8 % (10.5-14.5); WBC 9.5 thou/uL (4.0-11.0)
[2018-11-17 13:16] LABS: ANION GAP 17 mmol/L (7-16); BUN 10 mg/dL (7-18); CALCIUM 8.8 mg/dL (8.5-10.1); CHLORIDE 102 mmol/L (98-107); CO2 24 mmol/L (21-32); CREATININE 0.7 mg/dL (0.7-1.3); GLUCOSE 96 mg/dL (74-106); POTASSIUM 4.1 mmol/L (3.5-5.1); SODIUM 143 mmol/L (136-145)
[2018-11-17 13:25] LABS: ALBUMIN 4.7 g/dL (3.4-5.0); SGOT 37 U/L (15-37); SGPT 26 U/L (30-65); TOTAL BILIRUBIN 0.7 mg/dL (<0.1-1.0); TOTAL PROTEIN 8.2 g/dL (6.4-8.2); TROPONIN-I <0.06 ng/mL (<0.06)
[2018-11-17 13:36] VITALS: BP 121/74
[2018-11-17] MEDS ORDERED: ONDANSETRON HCL4 M2 PO (13:38)
--- NOTE | 2018-11-17 16:15 | EKG ---
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1970 Requested By: Elida Sebastian Order Number: [id number] MD: Rachid Vázquez Measurements Intervals [place] Rate: 86 P: 86 [place]: 162 QRS: 71 QRSD: 89 T: 58 QT: 371 QTc: 444 Interpretive Statements Sinus rhythm Normal tracing Compared to ECG 11/09/2018 08:16:09 Poor R-wave progression no longer present Electronically Signed On 11-17-2018 16:15:01 CDT by Rachid Vázquez [email or web address] ��������������������������������������������� <ELECTRONICALLY SIGNED> ���������������������������������������� By: Rachid Vázquez MD, [facility] ��������������������������������������������� 11/17/18 1615 1343 134 Rachid Vázquez MD, FACC /EPI
== END 2018-11-17 14:24 | disposition home or self-care (01) ==
LOC: ER 12:15
PROVIDERS: Physician Assistant
DX: F10.129 Alcohol abuse with intoxication, unspecified (principal); I10 Essential (primary) hypertension; F17.210 Nicotine dependence, cigarettes, uncomplicated

== ENCOUNTER 2018-11-19 06:44 | Emergency (ER) | payer OTHER ==
[~2018-11-19] VITALS: Ht 170.2 cm; Wt 72.6 kg
[~2018-11-19 06:44] MED LIST changes: +ONDANSETRON HCL4 M2 PO
[2018-11-19 07:08] LABS: BASOPHILS 1.2 % (0.0-2.0); EOSINOPHILS 0.1 % (0.0-3.0); HEMATOCRIT 46.6 % (42.0-52.0); HEMOGLOBIN 15.8 gm/dL (14.0-18.0); LYMPHOCYTES 14.6 % (24.0-44.0); MCH 32.9 pg (26.0-34.0); MCHC 33.8 g/dL (28.0-37.0); MCV 97.3 fL (80.0-100.0); MONOCYTES 1.8 % (1.0-8.0); PLATELET COUNT 279 thou/uL (150-400); POLYS 82.3 % (36.0-66.0); RDW 13.6 % (10.5-14.5); WBC 8.5 thou/uL (4.0-11.0)
[2018-11-19 07:18] LABS: ANION GAP 20 mmol/L (7-16); BUN 18 mg/dL (7-18); CALCIUM 8.7 mg/dL (8.5-10.1); CHLORIDE 98 mmol/L (98-107); CO2 19 mmol/L (21-32); CREATININE 0.9 mg/dL (0.7-1.3); GLUCOSE 76 mg/dL (74-106); POTASSIUM 3.7 mmol/L (3.5-5.1); SODIUM 137 mmol/L (136-145)
[2018-11-19 07:29] LABS: ALBUMIN 4.4 g/dL (3.4-5.0); LIPASE 104 U/L (73-393); MAGNESIUM 2.1 mg/dL (1.8-2.4); SGOT 41 U/L (15-37); SGPT 32 U/L (30-65); TOTAL BILIRUBIN 0.7 mg/dL (<0.1-1.0); TROPONIN-I <0.06 ng/mL (<0.06)
[2018-11-19] MEDS ORDERED: ATIVAN1 MG PO (08:07)
[2018-11-19] MEDS ORDERED: ONDANSETRON ODT8 MG PO (08:10)
--- NOTE | 2018-11-19 09:30 | EKG ---
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 : 1970 Requested By: Diallo Paige Order Number: [id number] MD: Rachid Vázquez Measurements Intervals [place] Rate: 99 P: 93 [place]: 156 QRS: 85 QRSD: 92 T: 64 QT: 351 QTc: 451 Interpretive Statements Sinus rhythm Poor R wave progression Compared to ECG 11/17/2018 13:44:36 No significant changes Electronically Signed On 11-19-2018 9:30:03 CDT by Rachid Vázquez [email or web address] ��������������������������������������������� <ELECTRONICALLY SIGNED> ���������������������������������������� By: Rachid Vázquez MD, [facility] ��������������������������������������������� 11/19/1830 9 07 Rachid Vázquez MD, FACC /EPI
[2018-11-19 10:33] VITALS: BP 126/70
== END 2018-11-19 10:34 | disposition home or self-care (01) ==
LOC: ER 06:44
PROVIDERS: Emergency Medicine
DX: F10.239 Alcohol dependence with withdrawal, unspecified (principal); R42 Dizziness and giddiness; R00.2 Palpitations; R00.0 Tachycardia, unspecified; F41.9 Anxiety disorder, unspecified; I10 Essential (primary) hypertension; F17.210 Nicotine dependence, cigarettes, uncomplicated; Z88.5 Allergy status to narcotic agent; Z88.8 Allergy status to other drugs, medicaments and biological substances; Z91.013 Allergy to seafood; Y90.0 Blood alcohol level of less than 20 mg/100 ml

== ENCOUNTER 2018-11-24 07:18 | Emergency (ER) | payer OTHER ==
[~2018-11-24] VITALS: Ht 170.2 cm; Wt 65.8 kg
[~2018-11-24 07:18] MED LIST changes: +ONDANSETRON ODT8 MG PO
[2018-11-24 08:30] LABS: BASOPHILS 0.5 % (0.0-2.0); EOSINOPHILS 2.3 % (0.0-3.0); HEMATOCRIT 45.1 % (42.0-52.0); HEMOGLOBIN 15.4 gm/dL (14.0-18.0); LYMPHOCYTES 31.5 % (24.0-44.0); MCH 33.4 pg (26.0-34.0); MCHC 34.1 g/dL (28.0-37.0); MCV 97.9 fL (80.0-100.0); MONOCYTES 5.6 % (1.0-8.0); PLATELET COUNT 197 thou/uL (150-400); POLYS 60.1 % (36.0-66.0); RBC 4.61 mil/uL (4.50-6.00); RDW 13.3 % (10.5-14.5); WBC 8.3 thou/uL (4.0-11.0)
[2018-11-24 08:34] LABS: CALCIUM 8.4 mg/dL (8.5-10.1); CREATININE 0.9 mg/dL (0.7-1.3); POTASSIUM 4.1 mmol/L (3.5-5.1)
[2018-11-24 08:40] LABS: ALBUMIN 3.9 g/dL (3.4-5.0); TOTAL BILIRUBIN 0.4 mg/dL (<0.1-1.0); TOTAL PROTEIN 7.4 g/dL (6.4-8.2)
[2018-11-24] MEDS ORDERED: ZOFRAN4 MG PO (10:02)
[2018-11-24 10:36] VITALS: BP 129/82
== END 2018-11-24 10:38 | disposition home or self-care (01) ==
LOC: ER 07:18
PROVIDERS: Student in an Organized Health Care Education/Training Program
DX: R11.2 Nausea with vomiting, unspecified (principal); F10.10 Alcohol abuse, uncomplicated; Z76.5 Malingerer [conscious simulation]; F41.9 Anxiety disorder, unspecified; I10 Essential (primary) hypertension; Z88.5 Allergy status to narcotic agent; Z88.8 Allergy status to other drugs, medicaments and biological substances; Z91.013 Allergy to seafood; F17.210 Nicotine dependence, cigarettes, uncomplicated; Y90.5 Blood alcohol level of 100-119 mg/100 ml

== ENCOUNTER 2018-11-29 23:48 | Emergency (ER) | payer OTHER ==
[~2018-11-29] VITALS: Ht 170.2 cm; Wt 65.8 kg
[~2018-11-29 23:48] MED LIST changes: +ZOFRAN4 MG PO
[2018-11-30 00:38] VITALS: BP 136/93
== END 2018-11-30 00:40 ==
LOC: ER 23:48
DX: F10.129 Alcohol abuse with intoxication, unspecified (principal); F41.9 Anxiety disorder, unspecified; I10 Essential (primary) hypertension; Y90.9 Presence of alcohol in blood, level not specified; Z88.5 Allergy status to narcotic agent; Z91.013 Allergy to seafood; Z88.8 Allergy status to other drugs, medicaments and biological substances